=== PATIENT | female | born 1940 | race Caucasian/White ===

== ENCOUNTER 2017-12-24 08:04 | Inpatient (IN) | payer MEDICARE ==
[~2017-12-24] VITALS: Ht 167.6 cm; Wt 71.5 kg
[2017-12-24] MEDS ORDERED: IPRATROPIUM/ALBUTEROL SULFATE 3 ML SOLUTION IH ONE (08:25)
[2017-12-24 08:29] LABS: BASOPHILS % (AUTO) 1.6 % (0.0-5.0); EOSINOPHILS % (AUTO) 0.9 % (0.0-8.0); HEMATOCRIT 41.6 % (36-48); LYMPHOCYTES % (AUTO) 33.6 % (21.0-51.0); MEAN CORPUSCULAR HEMOGLOBIN 29.2 pg (27.0-33.0); MEAN CORPUSCULAR VOLUME 88.4 fL (79-99); MONOCYTES % (AUTO) 11.6 % (3.0-13.0); NEUTROPHILS % (AUTO) 52.3 % (40.0-77.0); NUCLEATED RED BLOOD CELLS 0.2 % (0.0-0.19); PLATELET COUNT (AUTO) 214 K/uL (130-400); RED BLOOD CELL COUNT(AUTO) 4.71 MIL/uL (4.00-5.50); RED CELL DISTRIBUTION WIDTH 16.4 % (11.0-15.5); WHITE BLOOD COUNT (AUTO) 5.9 K/uL (4.8-10.8)
[2017-12-24 08:37] LABS: CREATININE 0.9 mg/dL (0.5-1.5); POTASSIUM 4.6 mmol/L (3.5-5.1)
[2017-12-24 08:42] LABS: BILIRUBIN,TOTAL 0.5 mg/dL (0.2-1.0); TOTAL PROTEIN, SERUM 9.3 g/dL (6.0-8.3)
[2017-12-24 08:53] LABS: ALBUMIN 3.4 g/dL (3.5-5.0)
[2017-12-24] MEDS ORDERED: MORPHINE SULFATE 4 MG/1ML SYG ONE (09:17)
[2017-12-24] MEDS ORDERED: ONDANSETRON HCL MDV 20ML 2 MG/ML VIAL ONE (09:17)
[2017-12-24] MEDS ORDERED: FUROSEMIDE 10 MG/ML 4ML VIAL ONE (09:37)
[2017-12-24] MEDS ORDERED: ACETAMINOPHEN 325 MG TAB PO PRN (09:45)
[2017-12-24] MEDS ORDERED: GUAIFENESIN-DM 200/20 MG 10 ML PO PRN (09:45)
[2017-12-24] MEDS ORDERED: LACTULOSE 20 GM/30 ML UDCUP PO PRN (09:45)
[2017-12-24] MEDS ORDERED: FENTANYL CITRATE PF 50 MCG/1 ML 2ML VIAL ONE (10:27)
[2017-12-24 10:31] LABS: HEMATOCRIT 41.2 % (36-48); MEAN CORPUSCULAR HEMOGLOBIN 28.8 pg (27.0-33.0); MEAN CORPUSCULAR HGB CONC 32.8 g/dL (32.0-36.0); MEAN CORPUSCULAR VOLUME 87.9 fL (79-99); NUCLEATED RED BLOOD CELLS 0.1 % (0.0-0.19); PLATELET COUNT (AUTO) 207 K/uL (130-400); RED BLOOD CELL COUNT(AUTO) 4.69 MIL/uL (4.00-5.50); RED CELL DISTRIBUTION WIDTH 16.6 % (11.0-15.5)
[2017-12-24 10:35] LABS: PROTHROMBIN TIME 10.5 SEC (9.6-11.6)
[2017-12-24 11:22] LABS: BILIRUBIN,URINE NEGATIVE (NEGATIVE); COLOR,URINE YELLOW (YELLOW); GLUCOSE, URINE (UA) NEGATIVE (NEGATIVE); KETONES,URINE NEGATIVE (NEGATIVE); LEUKOCYTE ESTERASE ,URINE SMALL (NEGATIVE); NITRATE,URINE POSITIVE (NEGATIVE); OCCULT BLOOD,URINE SMALL (NEGATIVE); PROTEIN,URINE TRACE (NEGATIVE); UROBILINOGEN,URINE 0.2 mg/dL (0.2-1.0)
[2017-12-24 11:28] LABS: APPEARANCE,URINE SLIGHTLY CLOUDY (CLEAR)
[2017-12-24 11:59] LABS: BACTERIA,URINE Many /HPF (None Seen)
[2017-12-24] MEDS: IPRATROPIUM/ALBUTEROL SULFATE 3 ML SOLUTION IH SCH ×2 (12:00→19:50)
[2017-12-24 12:01] LABS: RBC,URINE 0-1 /HPF (0-1); SQUAMOUS EPITHELIAL CELL,UR 0-2 /HPF (0-2)
[2017-12-24] MEDS ORDERED: ONDANSETRON HCL MDV 20ML 2 MG/ML VIAL IVP PRN (13:30)
[2017-12-24 14:04] VITALS: BP 128/76
[2017-12-24 15:01] VITALS: BP 146/70
[2017-12-24] MEDS: MORPHINE SULFATE 2 MG/ML 1ML SYG IVP PRN (15:16)
[2017-12-24] MEDS ORDERED: ESCI10TA54 PO (15:33)
[2017-12-24] MEDS ORDERED: LOSA100T29 PO (15:33)
[2017-12-24] MEDS ORDERED: VALS80TA29 PO (15:33)
[2017-12-24] MEDS ORDERED: LEVO75 PO (15:33)
[2017-12-24] MEDS ORDERED: FURO20TA4 PO (15:33)
[2017-12-24] MEDS ORDERED: SOTA80TA PO (15:33)
[2017-12-24] MEDS ORDERED: APIX5TAB4 PO (15:33)
[2017-12-24] MEDS ORDERED: KETOROLAC TROMETHAMINE 15MG/ML ONE (21:23)
[2017-12-24] MEDS: FAMOTIDINE/PF 20 MG/2 ML VIAL IV SCH (21:27)
[2017-12-25] VITALS (8 sets, daily range): BP systolic 80–124; BP diastolic 45–78
[2017-12-25] MEDS: IPRATROPIUM/ALBUTEROL SULFATE 3 ML SOLUTION IH SCH ×4 (00:43→19:19)
[2017-12-25] MEDS: SODIUM CHLORIDE 0.9% 1000ML 1,000 ML IV SCH ×2 (01:52→21:12)
[2017-12-25] MEDS ORDERED: LEVOFLOXACIN 500 MG/D5W 100 ML 100 ML ONE (02:00)
[2017-12-25] MEDS: LEVOFLOXACIN 500 MG/D5W 100 ML 100 ML IV SCH (02:02)
[2017-12-25] MEDS: KETOROLAC TROMETHAMINE 15MG/ML IV PRN ×2 (04:43→22:01)
[2017-12-25 05:29] LABS: HEMATOCRIT 32.3 % (36-48); MEAN CORPUSCULAR HEMOGLOBIN 29.3 pg (27.0-33.0); MEAN CORPUSCULAR HGB CONC 33.5 g/dL (32.0-36.0); MEAN CORPUSCULAR VOLUME 87.3 fL (79-99); NUCLEATED RED BLOOD CELLS 0.1 % (0.0-0.19); PLATELET COUNT (AUTO) 143 K/uL (130-400); RED CELL DISTRIBUTION WIDTH 16.6 % (11.0-15.5); WHITE BLOOD COUNT (AUTO) 7.1 K/uL (4.8-10.8)
[2017-12-25 05:43] LABS: CREATININE 1.8 mg/dL (0.5-1.5); POTASSIUM 4.1 mmol/L (3.5-5.1)
[2017-12-25 06:09] LABS: HEMOGLOBIN A1C 5.6 % (4.0-6.0)
[2017-12-25 06:27] LABS: B-TYPE NATRIURETIC PEPTIDE 220 pg/mL (0-100)
[2017-12-25] MEDS: FAMOTIDINE/PF 20 MG/2 ML VIAL IV SCH ×2 (12:04→21:11)
[2017-12-25] MEDS: MORPHINE SULFATE 2 MG/ML 1ML SYG IVP PRN (15:12)
[2017-12-25] MEDS: FLUTICASONE PROPIONATE 50MCG/SPRAY 16 GM BOTTLE EN SCH (21:11)
[2017-12-25] MEDS ORDERED: MORPHINE SULFATE 2 MG/ML 1ML SYG IVP PRN (22:57)
[2017-12-26] VITALS (32 sets, daily range): BP systolic 78–168; BP diastolic 41–85
[2017-12-26] MEDS: IPRATROPIUM/ALBUTEROL SULFATE 3 ML SOLUTION IH SCH ×5 (00:09→23:40)
[2017-12-26] MEDS: LEVOFLOXACIN 500 MG/D5W 100 ML 100 ML IV SCH (03:55)
[2017-12-26 05:37] LABS: HEMATOCRIT 32.3 % (36-48)
[2017-12-26 05:47] LABS: CREATININE 1.3 mg/dL (0.5-1.5); POTASSIUM 4.2 mmol/L (3.5-5.1)
[2017-12-26] MEDS: LEVOTHYROXINE 75 MCG TABLET PO SCH (07:25)
[2017-12-26] MEDS ORDERED: NEOMY SULF/POLYMYXIN B SULFATE 1 ML AMPUL IR ONE (07:37)
[2017-12-26] MEDS ORDERED: CLINDAMYCIN 900 MG/D5% WATER 50 ML IV ONE (08:06)
[2017-12-26] MEDS ORDERED: MIDAZOLAM HCL 1 MG/ML 2ML VIAL ONE ×2 (08:12→08:28)
[2017-12-26] MEDS ORDERED: PROPOFOL 10 MG/ML 20ML VIAL IV ONE ×2 (08:14→08:28)
[2017-12-26] MEDS ORDERED: DEXAMETHASONE SOD PHOSPHATE 10MG/ML 1ML VIAL ONE (08:27)
[2017-12-26] MEDS ORDERED: LIDOCAINE PF 2% 5ML ABBOJECT ONE (08:27)
[2017-12-26] MEDS ORDERED: GLYCOPYRROLATE 0.2 MG/ML 5 ML VIAL ONE (08:27)
[2017-12-26] MEDS: FAMOTIDINE/PF 20 MG/2 ML VIAL IV SCH ×2 (09:00→21:00)
[2017-12-26] MEDS: CITALOPRAM 20 MG TABLET PO SCH (09:00)
[2017-12-26] MEDS: FLUTICASONE PROPIONATE 50MCG/SPRAY 16 GM BOTTLE EN SCH ×2 (09:00→22:38)
[2017-12-26] MEDS ORDERED: BUPIVACAINE/EPI/PF 0.25% 30ML VIAL IJ ONE (09:56)
[2017-12-26] MEDS ORDERED: DURAMORPH PF1 MG/ML 10ML AMP IV ONE (09:56)
[2017-12-26] MEDS ORDERED: KETOROLAC TROMETHAMINE 30MG/ML ONE (09:58)
[2017-12-26] MEDS ORDERED: EPHEDRINE SULFATE 50 MG/ML AMPULE ONE (10:12)
[2017-12-26] MEDS: DEXTROSE 5%-LACTATED RINGERS 1,000 ML IV SCH (10:22)
[2017-12-26] MEDS ORDERED: OXYCODONE HCL 5 MG TAB PO PRN ×2 (10:30)
[2017-12-26] MEDS ORDERED: DiphenhydrAMINE HCL 50 MG/ML VIAL IVP PRN (10:30)
[2017-12-26] MEDS ORDERED: TRAMADOL HCL 50 MG TABLET PO PRN (10:30)
[2017-12-26] MEDS ORDERED: TEMAZEPAM 15 MG CAPSULE PO PRN (10:30)
[2017-12-26] MEDS ORDERED: POTASSIUM CHLORIDE 20 MEQ ERTAB PO PRN (10:30)
[2017-12-26] MEDS ORDERED: CALCIUM CARBONATE 500 MG TABLET PO PRN (10:30)
[2017-12-26] MEDS ORDERED: PROMETHAZINE HCL 25 MG/ML 1ML AMPULE IM PRN (10:30)
[2017-12-26] MEDS ORDERED: DIPHENHYDRAMINE HCL 25 MG CAPSULE PO PRN (10:30)
[2017-12-26] MEDS ORDERED: POTASSIUM CHLORIDE 20MEQ/100ML 100 ML IV PRN (10:30)
[2017-12-26] MEDS ORDERED: MEPERIDINE-PF 25 MG/ML SYG ONE (10:54)
[2017-12-26] MEDS ORDERED: LACTATED RINGERS 1000ML IV SCH (14:15)
[2017-12-26] MEDS: CLINDAMYCIN 900 MG/D5% WATER 50 ML IVPB SCH ×2 (16:20→22:38)
[2017-12-26] MEDS: PSYLLIUM SEED 1 EACH PACKET PO SCH (16:20)
[2017-12-26] MEDS: SOTALOL HCL 80 MG TABLET PO SCH (21:00)
[2017-12-26] MEDS: FUROSEMIDE 20 MG TABLET PO SCH (21:00)
[2017-12-27] MEDS: LEVOFLOXACIN 500 MG/D5W 100 ML 100 ML IV SCH (02:53)
[2017-12-27 04:25] VITALS: BP 100/54
[2017-12-27] MEDS: DEXTROSE 5%-LACTATED RINGERS 1,000 ML IV SCH (06:22)
[2017-12-27 06:38] LABS: HEMATOCRIT 21.9 % (36-48); MEAN CORPUSCULAR HGB CONC 33.2 g/dL (32.0-36.0); MEAN CORPUSCULAR VOLUME 87.2 fL (79-99); NUCLEATED RED BLOOD CELLS 0.1 % (0.0-0.19); PLATELET COUNT (AUTO) 94 K/uL (130-400); RED BLOOD CELL COUNT(AUTO) 2.51 MIL/uL (4.00-5.50); RED CELL DISTRIBUTION WIDTH 16.2 % (11.0-15.5); WHITE BLOOD COUNT (AUTO) 6.6 K/uL (4.8-10.8)
[2017-12-27] MEDS: IPRATROPIUM/ALBUTEROL SULFATE 3 ML SOLUTION IH SCH ×4 (06:38→23:51)
[2017-12-27 06:48] LABS: CREATININE 0.9 mg/dL (0.5-1.5); POTASSIUM 4.3 mmol/L (3.5-5.1)
[2017-12-27 07:41] VITALS: BP 92/54
[2017-12-27] MEDS: LEVOTHYROXINE 75 MCG TABLET PO SCH (08:27)
[2017-12-27] MEDS: SODIUM CHLORIDE 0.9% 1000ML 1,000 ML IV SCH (08:29)
[2017-12-27] MEDS: LOSARTAN 100 MG TABLET PO SCH (09:00)
[2017-12-27] MEDS: FUROSEMIDE 20 MG TABLET PO SCH ×2 (09:00→21:07)
[2017-12-27] MEDS ORDERED: VALSARTAN 80 MG PO SCH (09:00)
[2017-12-27] MEDS: SOTALOL HCL 80 MG TABLET PO SCH ×2 (09:00→21:07)
[2017-12-27] MEDS: FAMOTIDINE/PF 20 MG/2 ML VIAL IV SCH ×2 (09:00→21:00)
[2017-12-27] MEDS ORDERED: FUROSEMIDE 10 MG/ML 2ML VIAL IV SCH (09:45)
[2017-12-27] MEDS: CITALOPRAM 20 MG TABLET PO SCH (09:58)
[2017-12-27] MEDS: FLUTICASONE PROPIONATE 50MCG/SPRAY 16 GM BOTTLE EN SCH ×2 (09:59→21:06)
[2017-12-27] MEDS ORDERED: RIVAROXABAN 10 MG TABLET PO SCH (10:30)
[2017-12-27 11:36] VITALS: BP 134/82
[2017-12-27] MEDS: PSYLLIUM SEED 1 EACH PACKET PO SCH (12:53)
[2017-12-27 17:10] VITALS: BP 148/75
[2017-12-27 20:00] VITALS: BP 158/87
[2017-12-27] MEDS: APIXABAN 2.5 MG TABLET PO SCH (21:06)
[2017-12-28] VITALS (10 sets, daily range): BP systolic 74–128; BP diastolic 35–76
[2017-12-28] MEDS: LEVOFLOXACIN 500 MG/D5W 100 ML 100 ML IV SCH (03:02)
[2017-12-28] MEDS: SODIUM CHLORIDE 0.9% 1000ML 1,000 ML IV SCH (04:29)
[2017-12-28] MEDS ORDERED: DILTIAZEM HCL 5 MG/ML 10 ML VIAL IV SCH (05:15)
[2017-12-28] MEDS: SOTALOL HCL 80 MG TABLET PO SCH ×2 (05:21→21:00)
[2017-12-28 05:30] LABS: HEMATOCRIT 22.4 % (36-48); MEAN CORPUSCULAR HEMOGLOBIN 31.2 pg (27.0-33.0); MEAN CORPUSCULAR HGB CONC 35.6 g/dL (32.0-36.0); MEAN CORPUSCULAR VOLUME 87.5 fL (79-99); NUCLEATED RED BLOOD CELLS 0.1 % (0.0-0.19); PLATELET COUNT (AUTO) 101 K/uL (130-400); RED BLOOD CELL COUNT(AUTO) 2.56 MIL/uL (4.00-5.50); RED CELL DISTRIBUTION WIDTH 15.5 % (11.0-15.5); WHITE BLOOD COUNT (AUTO) 10.3 K/uL (4.8-10.8)
[2017-12-28] MEDS: LABETALOL 20 MG/4 ML DISP.SYRIN IV SCH (05:30)
[2017-12-28] MEDS ORDERED: LABETALOL HCL 5 MG/ML 20ML VIAL IV ONE (05:32)
[2017-12-28 05:48] LABS: CREATININE 0.9 mg/dL (0.5-1.5); POTASSIUM 3.2 mmol/L (3.5-5.1)
[2017-12-28] MEDS: IPRATROPIUM/ALBUTEROL SULFATE 3 ML SOLUTION IH SCH ×4 (06:43→23:09)
[2017-12-28] MEDS: LEVOTHYROXINE 75 MCG TABLET PO SCH (06:48)
[2017-12-28] MEDS ORDERED: SODIUM CHLORIDE 0.9% 500ML 500 ML IV SCH (08:00)
[2017-12-28] MEDS ORDERED: DILTIAZEM HCL 5 MG/ML 10 ML VIAL IV PRN (08:00)
[2017-12-28] MEDS ORDERED: DIGOXIN 250 MCG/ML 2ML AMP IV SCH (08:00)
[2017-12-28] MEDS ORDERED: MAGNESIUM 2GM PREMIX 50ML 50 ML IV SCH ×2 (08:00→11:30)
[2017-12-28] MEDS: CITALOPRAM 20 MG TABLET PO SCH (08:49)
[2017-12-28] MEDS: APIXABAN 2.5 MG TABLET PO SCH ×2 (08:49→20:08)
[2017-12-28] MEDS: FUROSEMIDE 20 MG TABLET PO SCH ×2 (09:00→21:00)
[2017-12-28] MEDS: FAMOTIDINE/PF 20 MG/2 ML VIAL IV SCH ×2 (09:00→20:18)
[2017-12-28] MEDS: LOSARTAN 100 MG TABLET PO SCH (09:00)
[2017-12-28] MEDS ORDERED: APIXABAN 2.5 MG TABLET PO SCH (09:15)
[2017-12-28] MEDS: POTASSIUM CHLORIDE 10% ELIXIR 20 MEQ/15 ML UDCUP PO PRN ×3 (10:17→15:58)
[2017-12-28] MEDS ORDERED: BISACODYL 5 MG TABLET.DR PO PRN (10:30)
[2017-12-28] MEDS: PSYLLIUM SEED 1 EACH PACKET PO SCH (11:41)
[2017-12-28] MEDS ORDERED: PHARMACY COMMUNICATION MISC SCH (13:15)
[2017-12-28] MEDS ORDERED: METOPROLOL TARTRATE 1 MG/ML 5ML VIAL IV PRN (13:30)
[2017-12-28] MEDS: FLUTICASONE PROPIONATE 50MCG/SPRAY 16 GM BOTTLE EN SCH (20:17)
[2017-12-29] VITALS (7 sets, daily range): BP systolic 96–110; BP diastolic 45–68
[2017-12-29] MEDS: LABETALOL 20 MG/4 ML DISP.SYRIN IV SCH (05:24)
[2017-12-29] MEDS: LEVOFLOXACIN 500 MG/D5W 100 ML 100 ML IV SCH (05:24)
[2017-12-29] MEDS: SODIUM CHLORIDE 0.9% 1000ML 1,000 ML IV SCH (05:25)
[2017-12-29 05:48] LABS: BASOPHILS % (AUTO) 0.3 % (0.0-5.0); EOSINOPHILS % (AUTO) 0.4 % (0.0-8.0); LYMPHOCYTES % (AUTO) 12.4 % (21.0-51.0); MEAN CORPUSCULAR HEMOGLOBIN 29.2 pg (27.0-33.0); MEAN CORPUSCULAR HGB CONC 33.3 g/dL (32.0-36.0); MEAN CORPUSCULAR VOLUME 87.7 fL (79-99); MONOCYTES % (AUTO) 16.8 % (3.0-13.0); NEUTROPHILS % (AUTO) 70.1 % (40.0-77.0); NUCLEATED RED BLOOD CELLS 0.2 % (0.0-0.19); PLATELET COUNT (AUTO) 104 K/uL (130-400); RED BLOOD CELL COUNT(AUTO) 2.85 MIL/uL (4.00-5.50); RED CELL DISTRIBUTION WIDTH 15.8 % (11.0-15.5); WHITE BLOOD COUNT (AUTO) 8.6 K/uL (4.8-10.8)
[2017-12-29 05:49] LABS: CREATININE 0.8 mg/dL (0.5-1.5); POTASSIUM 4.1 mmol/L (3.5-5.1)
[2017-12-29] MEDS: LEVOTHYROXINE 75 MCG TABLET PO SCH (06:12)
[2017-12-29] MEDS: IPRATROPIUM/ALBUTEROL SULFATE 3 ML SOLUTION IH SCH ×4 (07:03→23:43)
[2017-12-29] MEDS: LOSARTAN 100 MG TABLET PO SCH (09:00)
[2017-12-29] MEDS: FAMOTIDINE/PF 20 MG/2 ML VIAL IV SCH ×2 (09:00→20:48)
[2017-12-29] MEDS: FLUTICASONE PROPIONATE 50MCG/SPRAY 16 GM BOTTLE EN SCH ×2 (09:00→20:48)
[2017-12-29] MEDS: FUROSEMIDE 20 MG TABLET PO SCH ×2 (09:00→20:48)
[2017-12-29] MEDS: CITALOPRAM 20 MG TABLET PO SCH (10:16)
[2017-12-29] MEDS: APIXABAN 2.5 MG TABLET PO SCH ×2 (10:16→20:23)
[2017-12-29] MEDS: SOTALOL HCL 80 MG TABLET PO SCH ×2 (10:17→20:23)
[2017-12-29] MEDS: FERROUS FUMARATE 324 MG TABLET PO PRN (10:19)
[2017-12-29] MEDS ORDERED: BISACODYL 10 MG SUPP.RECT RC PRN (10:30)
[2017-12-29] MEDS: PSYLLIUM SEED 1 EACH PACKET PO SCH (12:27)
[2017-12-29] MEDS ORDERED: FUROSEMIDE 10 MG/ML 2ML VIAL IV SCH (12:30)
[2017-12-30] MEDS: LABETALOL 20 MG/4 ML DISP.SYRIN IV SCH (05:30)
[2017-12-30 05:36] LABS: CREATININE 0.8 mg/dL (0.5-1.5)
[2017-12-30 05:50] VITALS: BP 99/58
[2017-12-30 05:53] LABS: HEMATOCRIT 21.9 % (36-48); MEAN CORPUSCULAR HEMOGLOBIN 29.6 pg (27.0-33.0); MEAN CORPUSCULAR HGB CONC 34.1 g/dL (32.0-36.0); NUCLEATED RED BLOOD CELLS 0.3 % (0.0-0.19); PLATELET COUNT (AUTO) 115 K/uL (130-400); RED BLOOD CELL COUNT(AUTO) 2.52 MIL/uL (4.00-5.50); RED CELL DISTRIBUTION WIDTH 15.9 % (11.0-15.5); WHITE BLOOD COUNT (AUTO) 7.9 K/uL (4.8-10.8)
[2017-12-30] MEDS: IPRATROPIUM/ALBUTEROL SULFATE 3 ML SOLUTION IH SCH ×4 (05:54→23:46)
[2017-12-30] MEDS: LEVOFLOXACIN 500 MG/D5W 100 ML 100 ML IV SCH (05:55)
[2017-12-30] MEDS: LEVOTHYROXINE 75 MCG TABLET PO SCH (06:53)
[2017-12-30 08:02] VITALS: BP 111/65
[2017-12-30] MEDS: FAMOTIDINE/PF 20 MG/2 ML VIAL IV SCH ×2 (09:00→19:50)
[2017-12-30] MEDS: APIXABAN 2.5 MG TABLET PO SCH (09:00)
[2017-12-30] MEDS: FUROSEMIDE 20 MG TABLET PO SCH ×2 (09:00→19:54)
[2017-12-30] MEDS: LOSARTAN 100 MG TABLET PO SCH (09:00)
[2017-12-30] MEDS: CITALOPRAM 20 MG TABLET PO SCH (10:05)
[2017-12-30] MEDS: SOTALOL HCL 80 MG TABLET PO SCH ×2 (10:05→19:54)
[2017-12-30] MEDS: FLUTICASONE PROPIONATE 50MCG/SPRAY 16 GM BOTTLE EN SCH ×2 (10:06→19:49)
[2017-12-30 10:53] LABS: HEMATOCRIT 22.5 % (36-48)
[2017-12-30] MEDS ORDERED: COMPOUND IV MISC 1 EACH IVSOLN MISC PRN (11:30)
[2017-12-30 11:32] LABS: RETICULOCYTE % (AUTO) 3.25 % (0.42-2.23)
[2017-12-30 11:51] VITALS: BP 107/56
[2017-12-30] MEDS: IRON SUCROSE COMPLEX 100 MG in SODIUM CHLORIDE 0.9% 50 ML IV SCH (12:19)
[2017-12-30] MEDS: FERROUS FUMARATE 324 MG TABLET PO PRN (12:19)
[2017-12-30] MEDS: PSYLLIUM SEED 1 EACH PACKET PO SCH (12:19)
[2017-12-30 12:29] LABS: FERRITIN 137 ng/mL (15-150); IRON, SERUM 60 mcg/dL (50-170); TOTAL IRON BINDING CAPACITY 315 mcg/dL (250-450)
[2017-12-30 16:31] VITALS: BP 128/65
[2017-12-30 20:02] VITALS: BP 118/64
[2017-12-31] VITALS (7 sets, daily range): BP systolic 110–141; BP diastolic 59–86
[2017-12-31] MEDS: ACETAMINOPHEN 325 MG TAB PO PRN ×3 (00:44→22:17)
[2017-12-31] MEDS: LABETALOL 20 MG/4 ML DISP.SYRIN IV SCH (01:36)
[2017-12-31 05:17] LABS: HEMATOCRIT 22.6 % (36-48); MEAN CORPUSCULAR HEMOGLOBIN 29.5 pg (27.0-33.0); MEAN CORPUSCULAR HGB CONC 33.9 g/dL (32.0-36.0); MEAN CORPUSCULAR VOLUME 87.3 fL (79-99); NUCLEATED RED BLOOD CELLS 0.6 % (0.0-0.19); PLATELET COUNT (AUTO) 156 K/uL (130-400); RED BLOOD CELL COUNT(AUTO) 2.59 MIL/uL (4.00-5.50); WHITE BLOOD COUNT (AUTO) 8.2 K/uL (4.8-10.8)
[2017-12-31] MEDS: LEVOFLOXACIN 500 MG/D5W 100 ML 100 ML IV SCH (05:24)
[2017-12-31 05:35] LABS: CREATININE 0.7 mg/dL (0.5-1.5); POTASSIUM 3.6 mmol/L (3.5-5.1)
[2017-12-31] MEDS: IPRATROPIUM/ALBUTEROL SULFATE 3 ML SOLUTION IH SCH ×3 (06:14→19:59)
[2017-12-31] MEDS: LEVOTHYROXINE 75 MCG TABLET PO SCH (06:23)
[2017-12-31] MEDS: POTASSIUM CHLORIDE 10% ELIXIR 20 MEQ/15 ML UDCUP PO PRN ×2 (06:24→10:24)
[2017-12-31] MEDS: LOSARTAN 100 MG TABLET PO SCH (08:56)
[2017-12-31] MEDS: FAMOTIDINE/PF 20 MG/2 ML VIAL IV SCH ×2 (08:56→20:48)
[2017-12-31] MEDS: SOTALOL HCL 80 MG TABLET PO SCH ×2 (10:05→20:47)
[2017-12-31] MEDS: CITALOPRAM 20 MG TABLET PO SCH (10:05)
[2017-12-31] MEDS: FLUTICASONE PROPIONATE 50MCG/SPRAY 16 GM BOTTLE EN SCH ×2 (10:05→20:48)
[2017-12-31] MEDS: FUROSEMIDE 20 MG TABLET PO SCH ×2 (10:06→21:00)
[2017-12-31] MEDS: IRON SUCROSE COMPLEX 100 MG in SODIUM CHLORIDE 0.9% 50 ML IV SCH (11:54)
[2017-12-31] MEDS: PSYLLIUM SEED 1 EACH PACKET PO SCH (11:54)
[2017-12-31] MEDS ORDERED: FUROSEMIDE 10 MG/ML 2ML VIAL IV SCH (16:45)
[2017-12-31] MEDS ORDERED: FUROSEMIDE 10 MG/ML 2ML VIAL ONE (21:42)
[2018-01-01] MEDS: IPRATROPIUM/ALBUTEROL SULFATE 3 ML SOLUTION IH SCH ×4 (00:35→18:00)
[2018-01-01 04:00] VITALS: BP 122/69
[2018-01-01] MEDS: LABETALOL 20 MG/4 ML DISP.SYRIN IV SCH (05:30)
[2018-01-01 05:50] LABS: BASOPHILS % (AUTO) 0.5 % (0.0-5.0); EOSINOPHILS % (AUTO) 0.8 % (0.0-8.0); HEMATOCRIT 24.5 % (36-48); LYMPHOCYTES % (AUTO) 13.5 % (21.0-51.0); MEAN CORPUSCULAR HEMOGLOBIN 31.5 pg (27.0-33.0); MEAN CORPUSCULAR HGB CONC 35.8 g/dL (32.0-36.0); MONOCYTES % (AUTO) 18.6 % (3.0-13.0); NEUTROPHILS % (AUTO) 66.6 % (40.0-77.0); NUCLEATED RED BLOOD CELLS 1.6 % (0.0-0.19); PLATELET COUNT (AUTO) 144 K/uL (130-400); RED BLOOD CELL COUNT(AUTO) 2.79 MIL/uL (4.00-5.50); RED CELL DISTRIBUTION WIDTH 15.6 % (11.0-15.5); WHITE BLOOD COUNT (AUTO) 9.1 K/uL (4.8-10.8)
[2018-01-01 06:17] LABS: CREATININE 0.7 mg/dL (0.5-1.5); POTASSIUM 3.6 mmol/L (3.5-5.1)
[2018-01-01] MEDS: LEVOFLOXACIN 500 MG/D5W 100 ML 100 ML IV SCH (06:42)
[2018-01-01] MEDS: LEVOTHYROXINE 75 MCG TABLET PO SCH (06:43)
[2018-01-01 08:00] VITALS: BP 142/78
[2018-01-01] MEDS: FLUTICASONE PROPIONATE 50MCG/SPRAY 16 GM BOTTLE EN SCH (08:58)
[2018-01-01] MEDS: SOTALOL HCL 80 MG TABLET PO SCH (08:59)
[2018-01-01] MEDS: IRON SUCROSE COMPLEX 100 MG in SODIUM CHLORIDE 0.9% 50 ML IV SCH (08:59)
[2018-01-01] MEDS: CITALOPRAM 20 MG TABLET PO SCH (08:59)
[2018-01-01] MEDS: FUROSEMIDE 20 MG TABLET PO SCH (08:59)
[2018-01-01] MEDS: FAMOTIDINE/PF 20 MG/2 ML VIAL IV SCH (08:59)
[2018-01-01] MEDS: POTASSIUM CHLORIDE 10% ELIXIR 20 MEQ/15 ML UDCUP PO PRN ×2 (09:00→12:30)
[2018-01-01] MEDS: LOSARTAN 100 MG TABLET PO SCH (09:00)
[2018-01-01] MEDS ORDERED: FAMOTIDINE 20MG TAB 20 MG TAB PO SCH (10:30)
[2018-01-01 12:00] VITALS: BP 121/74
[2018-01-01] MEDS: PSYLLIUM SEED 1 EACH PACKET PO SCH (12:29)
[2018-01-01 16:00] VITALS: BP 116/64
== END 2018-01-01 19:00 | DRG 469 ==
LOC: EDH 08:04 → EDHIP 09:43 → 4AH 14:34
PROVIDERS: ADMIT Family Medicine; ATTEND Family Medicine
PROC: 0SRB01Z Replacement of Left Hip Joint with Metal Synthetic Substitute, Open Approach (ICD-10-PCS; principal; 2017-12-26 09:04)
PROC: 30233N1 Transfusion of Nonautologous Red Blood Cells into Peripheral Vein, Percutaneous Approach (ICD-10-PCS; 2017-12-26 09:04)
DX: S72.002A Fracture of unspecified part of neck of left femur, initial encounter for closed fracture (principal); I50.33 Acute on chronic diastolic (congestive) heart failure; D68.69 Other thrombophilia; I48.0 Paroxysmal atrial fibrillation; I48.1 Persistent atrial fibrillation; E83.42 Hypomagnesemia; N39.0 Urinary tract infection, site not specified; D64.9 Anemia, unspecified; E03.9 Hypothyroidism, unspecified; E78.5 Hyperlipidemia, unspecified; F32.9 Major depressive disorder, single episode, unspecified; I11.0 Hypertensive heart disease with heart failure; I25.10 Atherosclerotic heart disease of native coronary artery without angina pectoris; I34.0 Nonrheumatic mitral (valve) insufficiency; W01.0XXA Fall on same level from slipping, tripping and stumbling without subsequent striking against object, initial encounter; R73.9 Hyperglycemia, unspecified; Y93.K1 Activity, walking an animal; Z79.01 Long term (current) use of anticoagulants; Z90.710 Acquired absence of both cervix and uterus; Y92.89 Other specified places as the place of occurrence of the external cause; Y99.8 Other external cause status; Z88.0 Allergy status to penicillin
CPT/HCPCS: 36415; 36430; 70450; 71045; 72170; 73502; 73503; 80048; 80053; 81001; 82270; 82550; 82607; 82728; 82746; 83036; 83615; 83735; 83880; 84484; 85014; 85018; 85025; 85027; 85610; 86850; 86900; 86901; 86922; 87040; 88305; 88311; 93005; 94640; 94664; 97039; A4344; J1100; J1160; J1756; J1885; J1940; J1956; J2001; J2175; J2250; J2270; J2274; J2704; J3010; J3475; J3480; J3490; J7030; J7040; J7120; P9016

== ENCOUNTER 2019-02-28 11:01 | Emergency (ER) | payer MEDICARE ==
[~2019-02-28 11:01] MED LIST: APIX5TAB4 PO; ESCI10TA54 PO; FURO20TA4 PO; LEVO75 PO; LOSA100T58 PO; SOTA80TA PO; VALS80TA30 PO
[2019-02-28 11:16] LABS: BASOPHILS % (AUTO) 0.9 % (0.0-5.0); EOSINOPHILS % (AUTO) 0.6 % (0.0-8.0); HEMATOCRIT 38.4 % (36-48); LYMPHOCYTES % (AUTO) 14.3 % (21.0-51.0); MEAN CORPUSCULAR HEMOGLOBIN 34.5 pg (27.0-33.0); MEAN CORPUSCULAR HGB CONC 34.8 g/dL (32.0-36.0); MEAN CORPUSCULAR VOLUME 99.1 fL (79-99); MONOCYTES % (AUTO) 11.1 % (3.0-13.0); NEUTROPHILS % (AUTO) 73.1 % (40.0-77.0); NUCLEATED RED BLOOD CELLS 0.4 % (0.0-0.19); PLATELET COUNT (AUTO) 136 K/uL (130-400); RED BLOOD CELL COUNT(AUTO) 3.87 MIL/uL (4.00-5.50); RED CELL DISTRIBUTION WIDTH 15.3 % (11.0-15.5); WHITE BLOOD COUNT (AUTO) 5.5 K/uL (4.8-10.8)
[2019-02-28 11:22] LABS: CREATININE 0.8 mg/dL (0.5-1.5); POTASSIUM 4.4 mmol/L (3.5-5.1)
[2019-02-28 11:27] LABS: ALBUMIN 3.7 g/dL (3.5-5.0); BILIRUBIN,TOTAL 1.2 mg/dL (0.2-1.0); TOTAL PROTEIN, SERUM 9.1 g/dL (6.0-8.3)
[2019-02-28] MEDS ORDERED: IPRATROPIUM/ALBUTEROL SULFATE 3 ML SOLUTION IH ONE ×2 (11:53→14:19)
[2019-02-28 12:02] LABS: B-TYPE NATRIURETIC PEPTIDE 353 pg/mL (0-100)
[2019-02-28] MEDS ORDERED: METHYLPREDNISOLONE SOD SUCC 125MG/2ML VIAL ONE (14:12)
== END 2019-02-28 15:21 | disposition home or self-care (01) ==
LOC: EDH 11:01
DX: J98.01 Acute bronchospasm (principal); E78.5 Hyperlipidemia, unspecified; I10 Essential (primary) hypertension; I48.91 Unspecified atrial fibrillation; E07.9 Disorder of thyroid, unspecified; Z88.0 Allergy status to penicillin; Z90.710 Acquired absence of both cervix and uterus; Z98.890 Other specified postprocedural states
CPT/HCPCS: 36415; 71045; 80053; 83880; 84484; 85025; 85378; 93005; 94640 ×2; 96374; 99285; J2930

== ENCOUNTER → 2019-08-29 | Outpatient (CLI) | payer MEDICARE ==
[~2019-08-29] MED LIST changes: +REGADENOSON 0.4 MG/5 ML PF SYG IVP SCH
== END | disposition home or self-care (01) ==
LOC: RAH 08:40
PROVIDERS: ATTEND Internal Medicine Cardiovascular Disease
DX: R06.02 Shortness of breath (principal)
CPT/HCPCS: 78452; 93017; 96374; A9500 ×2; J2785

== ENCOUNTER 2020-02-01 11:48 | Inpatient (IN) | payer MEDICARE ==
[2020-02-01] VITALS (23 sets, daily range): BP systolic 123–167; BP diastolic 67–94
[~2020-02-01] VITALS: Ht 167.6 cm; Wt 83.3 kg
[~2020-02-01 11:48] MED LIST changes: -REGADENOSON 0.4 MG/5 ML PF SYG IVP SCH; +ROCURONIUM BROMIDE 10MG/1ML 5ML VL IV ONE; +SUCCINYLCHOLINE CHLORIDE 20 MG/ML 10 ML VIAL IVP ONE
[2020-02-01] MEDS ORDERED: ONDANSETRON HCL 4 MG/2 ML VIAL ONE (12:26)
[2020-02-01 12:28] LABS: BASOPHILS % (AUTO) 0.2 % (0.0-5.0); EOSINOPHILS % (AUTO) 1.6 % (0.0-8.0); HEMATOCRIT 35.1 % (36-48); LYMPHOCYTES % (AUTO) 19.2 % (21.0-51.0); MEAN CORPUSCULAR HEMOGLOBIN 32.1 pg (27.0-33.0); MEAN CORPUSCULAR HGB CONC 32.5 g/dL (32.0-36.0); MEAN CORPUSCULAR VOLUME 98.9 fL (79-99); MONOCYTES % (AUTO) 12.7 % (3.0-13.0); NEUTROPHILS % (AUTO) 65.9 % (40.0-77.0); PLATELET COUNT (AUTO) 137 K/uL (130-400); RED BLOOD CELL COUNT(AUTO) 3.55 MIL/uL (4.00-5.50); RED CELL DISTRIBUTION WIDTH 15.4 % (11.0-15.5); WHITE BLOOD COUNT (AUTO) 4.5 K/uL (4.8-10.8)
[2020-02-01 12:32] LABS: CREATININE 0.8 mg/dL (0.5-1.5); INR 1.01 (0.85-1.15); PARTIAL THROMBOPLASTIN TIME 28.9 SEC (26.3-35.5); POTASSIUM 5.1 mmol/L (3.5-5.1); PROTHROMBIN TIME 10.9 SEC (9.6-11.6)
[2020-02-01 12:35] LABS: ALBUMIN 3.4 g/dL (3.5-5.0); BILIRUBIN,TOTAL 1.1 mg/dL (0.2-1.0); TOTAL PROTEIN, SERUM 8.1 g/dL (6.0-8.3)
[2020-02-01] MEDS ORDERED: ONDANSETRON HCL 4 MG/2 ML VIAL IVP PRN (13:15)
[2020-02-01] MEDS ORDERED: MORPHINE SULFATE 4 MG/1ML SYG ONE (13:21)
[2020-02-01] MEDS ORDERED: NICARDIPINE HCL IV SCH ×2 (14:00)
[2020-02-01] MEDS ORDERED: SODIUM CHLORIDE IV SCH ×2 (14:00)
[2020-02-01] MEDS ORDERED: HUMAN PROTHROMBIN COMPLX(PCC) 500 UNIT KIT IV SCH ×2 (14:15→14:30)
[2020-02-01] MEDS ORDERED: MORPHINE SULFATE 2 MG/ML 1ML SYG IVP PRN (14:45)
[2020-02-01] MEDS ORDERED: ROCURONIUM BROMIDE 10MG/1ML 5ML VL IV ONE (15:38)
[2020-02-01] MEDS ORDERED: ETOMIDATE 2 MG/ML 10 ML VIAL IVP ONE (15:38)
[2020-02-01] MEDS ORDERED: PHYTONADIONE 10 MG in SODIUM CHLORIDE 0.9% 50 ML IV SCH (16:15)
[2020-02-01] MEDS ORDERED: PHYTONADIONE 10 MG in SODIUM CHLORIDE 0.9% 50 ML SQ SCH (16:30)
[2020-02-01] MEDS: PHARMACY COMMUNICATION MISC SCH ×2 (18:34→20:45)
[2020-02-01] MEDS: SODIUM CHLORIDE 0.9% 1000ML 1,000 ML IV SCH (18:34)
[2020-02-01] MEDS ORDERED: FURO40TA5 PO (20:32)
[2020-02-01] MEDS ORDERED: LOSA100T58 PO (20:32)
[2020-02-01] MEDS ORDERED: SPIR25TA6 PO (20:32)
[2020-02-01] MEDS ORDERED: APIX5TAB PO (20:32)
[2020-02-01] MEDS ORDERED: SOTA80TA PO (20:32)
[2020-02-01] MEDS ORDERED: LEVO75TA10 PO (20:32)
[2020-02-02] VITALS (47 sets, daily range): BP systolic 93–172; BP diastolic 47–95
[2020-02-02] MEDS ORDERED: NICARDIPINE HCL 25 MG/10 ML ML IV ONE (00:09)
[2020-02-02] MEDS: PHARMACY COMMUNICATION MISC SCH ×4 (00:45→17:15)
[2020-02-02 04:20] LABS: EOSINOPHILS % (AUTO) 0.7 % (0.0-8.0); LYMPHOCYTES % (AUTO) 12.4 % (21.0-51.0); MEAN CORPUSCULAR HGB CONC 31.8 g/dL (32.0-36.0); MEAN CORPUSCULAR VOLUME 100.6 fL (79-99); MONOCYTES % (AUTO) 10.5 % (3.0-13.0); NEUTROPHILS % (AUTO) 74.9 % (40.0-77.0); NUCLEATED RED BLOOD CELLS 0.4 % (0.0-0.19); PLATELET COUNT (AUTO) 131 K/uL (130-400); RED BLOOD CELL COUNT(AUTO) 3.28 MIL/uL (4.00-5.50); RED CELL DISTRIBUTION WIDTH 15.2 % (11.0-15.5); WHITE BLOOD COUNT (AUTO) 6.7 K/uL (4.8-10.8)
[2020-02-02 04:28] LABS: CREATININE 0.7 mg/dL (0.5-1.5)
[2020-02-02 07:35] LABS: ABG BASE EXCESS 2.4 mmol/L (-2.0-3.0); ABG HCO3 29.8 mmol/L (21.0-28.0); ABG OXYGEN SATURATION 90.8 % (95.0-99.0); ABG PCO2 58 mmHg (32-45)
[2020-02-02] MEDS ORDERED: PROPOFOL 1000 MG/100 ML 100 ML IV ONE ×2 (08:40→10:34)
[2020-02-02] MEDS ORDERED: FENTANYL CITRATE PF 50 MCG/1 ML 2ML VIAL ONE (08:41)
--- NOTE | 2020-02-02 08:48 | NUR ---
Dr. Geronimo Alexandra with orders to intubate patient. Medicated with succinylcholine 100 mg, diprivan 100 mg, fentanyl 50 mg and rocuronium 50 mg. Patient intubated by Koko Kim CRNA with ET tube 7.5 24 cm at lip placed on ventilator AC mode. Dr. James at bedside. Dr. Tran at bedside. Dr. Chiu at bedside.
[2020-02-02] MEDS ORDERED: PROPOFOL 1000 MG/100 ML IV ONE (09:00)
[2020-02-02] MEDS ORDERED: FENTANYL CITRATE PF 50 MCG/1 ML 2ML VIAL IVP SCH (09:00)
[2020-02-02] MEDS ORDERED: FENTANYL CITRATE PF 0.05 MG/ML 1,000 MCG in SODIUM CHLORIDE 0.9% 100 ML IVPB SCH (09:15)
[2020-02-02] MEDS ORDERED: MIDAZOLAM 50MG-0.9% NS 50ML 50 ML BAG IV SCH (09:15)
[2020-02-02] MEDS ORDERED: MANNITOL 25% 50ML VIAL IV SCH (09:15)
[2020-02-02] MEDS ORDERED: CEFAZOLIN SODIUM 1 GM VIAL ONE ×2 (09:24→09:40)
[2020-02-02] MEDS ORDERED: ROCURONIUM 10MG/1ML SYR 10 MG/ML ML ONE ×2 (09:24→10:44)
[2020-02-02] MEDS ORDERED: PROPOFOL 10 MG/ML 20ML VIAL IV ONE (09:24)
[2020-02-02] MEDS ORDERED: THROMBIN-JMI 20000 UNIT KIT TP ONE (09:40)
[2020-02-02] MEDS ORDERED: BUPIVACAINE/EPI/PF 0.25% 30ML VIAL IJ ONE (09:40)
[2020-02-02] MEDS: PROPOFOL 1000 MG/100 ML 100 ML IV PRN (09:53)
[2020-02-02] MEDS ORDERED: EPHEDRINE SULFATE 50 MG/ML AMPULE ONE (10:12)
[2020-02-02 10:28] LABS: ABG BASE EXCESS 0.6 mmol/L (-2.0-3.0); ABG HCO3 24.7 mmol/L (21.0-28.0); ABG OXYGEN SATURATION 98.5 % (95.0-99.0); ABG PCO2 37 mmHg (32-45)
[2020-02-02 12:28] LABS: ABG BASE EXCESS 1.2 mmol/L (-2.0-3.0); ABG HCO3 23.1 mmol/L (21.0-28.0); ABG OXYGEN SATURATION 99.7 % (95.0-99.0); ABG PCO2 30 mmHg (32-45)
[2020-02-02] MEDS: FENTANYL 1000MCG+NS 100ML IV.SOLN IV SCH (12:53)
[2020-02-02] MEDS: SODIUM CHLORIDE 0.9% 1000ML 1,000 ML IV SCH (13:07)
[2020-02-02] MEDS: FAMOTIDINE/PF 20 MG/2 ML VIAL IV SCH (13:15)
--- NOTE | 2020-02-02 13:32 | NUR ---
Dr. Geronimo Alexandra at bedside. Spoke to sister Daxa Mayo and daughter Lainey Jose about procedure. Telephone consent obtained. Time out done for bronchoscopy and central venous catheter placement performed.
[2020-02-02 14:52] LABS: ABG BASE EXCESS 1.7 mmol/L (-2.0-3.0); ABG HCO3 24.5 mmol/L (21.0-28.0); ABG OXYGEN SATURATION 97.7 % (95.0-99.0); ABG PCO2 33 mmHg (32-45)
[2020-02-02] MEDS ORDERED: PHARMACY COMMUNICATION MISC SCH ×2 (15:15→15:30)
[2020-02-02] MEDS: ZOSYN 3.375GM+NS 50ML 50 ML IV SCH (16:42)
[2020-02-02] MEDS ORDERED: LIDOCAINE HCL-MPF 1% 2ML VIAL IJ PRN (16:45)
--- NOTE | 2020-02-02 17:59 | NUR ---
cm note pt currently intubated, attempted to call sister at listed phone #s. no answer. will continue to follow. per chart review, pt resides at home. no dme. independent with ambulation. will continue to followup with family Addendum: 02/02/20 at 1802 by LILI FAM CM Amended: Links added.
[2020-02-02 18:33] LABS: CREATININE 0.6 mg/dL (0.5-1.5); MAGNESIUM 1.6 mg/dL (1.80-2.40); POTASSIUM 3.4 mmol/L (3.5-5.1)
[2020-02-02] MEDS: POTASSIUM CHLORIDE 20MEQ/100ML 100 ML IV PRN (18:55)
[2020-02-02] MEDS: MAGNESIUM 2GM PREMIX 50ML 50 ML IV SCH (19:58)
[2020-02-03] VITALS (24 sets, daily range): BP systolic 9–140; BP diastolic 42–74
[2020-02-03] MEDS: PHARMACY COMMUNICATION MISC SCH ×3 (01:15→17:15)
[2020-02-03 03:58] LABS: ABG BASE EXCESS 0.2 mmol/L (-2.0-3.0); ABG HCO3 23.9 mmol/L (21.0-28.0); ABG OXYGEN SATURATION 98.7 % (95.0-99.0); ABG PCO2 36 mmHg (32-45)
[2020-02-03 04:28] LABS: BASOPHILS % (AUTO) 0.1 % (0.0-5.0); HEMATOCRIT 30.6 % (36-48); LYMPHOCYTES % (AUTO) 10.3 % (21.0-51.0); MEAN CORPUSCULAR HEMOGLOBIN 32.5 pg (27.0-33.0); MEAN CORPUSCULAR HGB CONC 32.4 g/dL (32.0-36.0); MEAN CORPUSCULAR VOLUME 100.3 fL (79-99); MONOCYTES % (AUTO) 14.7 % (3.0-13.0); NEUTROPHILS % (AUTO) 73.8 % (40.0-77.0); NUCLEATED RED BLOOD CELLS 0.5 % (0.0-0.19); PLATELET COUNT (AUTO) 140 K/uL (130-400); RED BLOOD CELL COUNT(AUTO) 3.05 MIL/uL (4.00-5.50); RED CELL DISTRIBUTION WIDTH 15.4 % (11.0-15.5); WHITE BLOOD COUNT (AUTO) 8.1 K/uL (4.8-10.8)
[2020-02-03 04:31] LABS: CREATININE 0.6 mg/dL (0.5-1.5); POTASSIUM 3.7 mmol/L (3.5-5.1)
[2020-02-03 04:34] LABS: INR 0.97 (0.85-1.15); MAGNESIUM 2.2 mg/dL (1.80-2.40); PARTIAL THROMBOPLASTIN TIME 27.1 SEC (26.3-35.5); PROTHROMBIN TIME 10.5 SEC (9.6-11.6)
[2020-02-03 05:55] LABS: ALBUMIN 2.8 g/dL (3.5-5.0); BILIRUBIN,TOTAL 0.9 mg/dL (0.2-1.0); TOTAL PROTEIN, SERUM 7.1 g/dL (6.0-8.3)
[2020-02-03] MEDS: POTASSIUM CHLORIDE 20MEQ/100ML 100 ML IV PRN ×2 (06:44→09:18)
[2020-02-03] MEDS: FENTANYL 1000MCG+NS 100ML IV.SOLN IV SCH (06:59)
[2020-02-03 07:39] LABS: ABG BASE EXCESS -0.1 mmol/L (-2.0-3.0); ABG HCO3 24.1 mmol/L (21.0-28.0); ABG OXYGEN SATURATION 97.9 % (95.0-99.0); ABG PCO2 38 mmHg (32-45)
[2020-02-03] MEDS: FAMOTIDINE/PF 20 MG/2 ML VIAL IV SCH (07:46)
[2020-02-03] MEDS: SODIUM CHLORIDE 0.9% 1000ML 1,000 ML IV SCH (07:46)
[2020-02-03] MEDS: ZOSYN 3.375GM+NS 50ML 50 ML IV SCH ×3 (07:46→15:20)
[2020-02-03] MEDS: PROPOFOL 1000 MG/100 ML 100 ML IV PRN (07:48)
[2020-02-03] MEDS ORDERED: PANTOPRAZOLE 40 MG/VIAL IVP SCH (09:00)
--- NOTE | 2020-02-03 09:31 | NUR ---
DR VERGARA HERE TO SEE PATIENT UPDATED. ORDERED TO START OG TUBE FEEDINGS RECOMMENDED BY DR AMIN.
[2020-02-03] MEDS ORDERED: FUROSEMIDE 10 MG/ML 2ML VIAL ONE ×2 (12:14→12:15)
[2020-02-03] MEDS ORDERED: FUROSEMIDE 10 MG/ML 2ML VIAL IV SCH ×2 (12:15→14:15)
--- NOTE | 2020-02-03 12:45 | NUR ---
DR AMIN HERE TO SEE PT UPDATED. HE WEANED PT OFF VENTILATOR AND EXTUBATED. HE SPOKE TO PT'S SISTER OVER THE PHONE AND UPDATED HER REGARDING STATUS AND PLAN OF CARE. QUESTIONS ANSWERED IN DETAIL. PATIENT ON 40% AEROSOL FACE MASK. NO RESPIRATORY DISTRESS NOTED.
[2020-02-03] MEDS ORDERED: FENTANYL CITRATE PF 50 MCG/1 ML 2ML VIAL IVP PRN (14:00)
[2020-02-03] MEDS ORDERED: IPRATROPIUM/ALBUTEROL SULFATE 3 ML SOLUTION IH PRN (14:00)
[2020-02-03] MEDS ORDERED: TRAMADOL /APAP 37.5MG/325MG TAB PO PRN (14:00)
--- NOTE | 2020-02-03 16:13 | NUR ---
DR PACHECO HERE TO SEE PT UPDATED. VERBAL ORDERS RECEIVED AND CARRIED OUT.
[2020-02-03] MEDS ORDERED: DILTIAZEM HCL 5 MG/ML 10 ML VIAL IV PRN (16:15)
[2020-02-03] MEDS: SOTALOL HCL 80 MG TABLET PO SCH ×2 (17:03→20:50)
[2020-02-03] MEDS ORDERED: METOPROLOL TARTRATE 25 MG TAB PO SCH (21:00)
[2020-02-04] VITALS (25 sets, daily range): BP systolic 87–126; BP diastolic 48–91
[2020-02-04] MEDS: ZOSYN 3.375GM+NS 50ML 50 ML IV SCH ×4 (00:22→23:12)
[2020-02-04] MEDS: PHARMACY COMMUNICATION MISC SCH (00:23)
[2020-02-04] MEDS: SODIUM CHLORIDE 0.9% 1000ML 1,000 ML IV SCH (00:23)
[2020-02-04] MEDS: SOTALOL HCL 80 MG TABLET PO SCH ×2 (04:17→20:42)
[2020-02-04 06:45] LABS: BASOPHILS % (AUTO) 0.1 % (0.0-5.0); EOSINOPHILS % (AUTO) 0.5 % (0.0-8.0); HEMATOCRIT 31.7 % (36-48); LYMPHOCYTES % (AUTO) 13.8 % (21.0-51.0); MEAN CORPUSCULAR HGB CONC 32.2 g/dL (32.0-36.0); MEAN CORPUSCULAR VOLUME 99.4 fL (79-99); MONOCYTES % (AUTO) 16.9 % (3.0-13.0); NEUTROPHILS % (AUTO) 67.4 % (40.0-77.0); NUCLEATED RED BLOOD CELLS 0.3 % (0.0-0.19); PLATELET COUNT (AUTO) 142 K/uL (130-400); RED BLOOD CELL COUNT(AUTO) 3.19 MIL/uL (4.00-5.50); RED CELL DISTRIBUTION WIDTH 15.7 % (11.0-15.5); WHITE BLOOD COUNT (AUTO) 7.4 K/uL (4.8-10.8)
[2020-02-04 07:11] LABS: CREATININE 0.8 mg/dL (0.5-1.5); PHOSPHORUS 1.9 mg/dL (2.5-4.9); POTASSIUM 3.9 mmol/L (3.5-5.1)
[2020-02-04] MEDS ORDERED: DILTIAZEM HCL 60 MG TABLET ONE (08:28)
[2020-02-04] MEDS: DILTIAZEM HCL 60 MG TABLET PO SCH ×4 (08:30→23:43)
[2020-02-04] MEDS: FAMOTIDINE/PF 20 MG/2 ML VIAL IV SCH (08:32)
--- NOTE | 2020-02-04 08:40 | NUR ---
RECEIVED CALL FROM DR PACHECO UPDATED HIM REGARDING STATUS INCLUDING CONVERSION TO ATRIAL FIBRILLATION OVERNIGHT. REVIEWED CURRENT MEDICATIONS. ORDERS RECEIVED AND CARRIED OUT.
[2020-02-04] MEDS ORDERED: FUROSEMIDE 10 MG/ML 4ML VIAL IV SCH (09:00)
--- NOTE | 2020-02-04 09:00 | NUR ---
DR VERGARA HERE TO SEE PATIENT UPDATED. NOTIFIED OF CHANGE TO CARDIAC RHYTHM AND NOW IN AFIB WITH HR 120'S; S/S OF ASPIRATION. BEDSIDE SWALLOW ORDERED. MBSS ORDERED FOR TOMORROW IF NEEDED.
[2020-02-04] MEDS: DILTIAZEM HCL 5 MG/ML 5 ML VIAL IVP PRN (10:04)
--- NOTE | 2020-02-04 12:28 | NUR ---
Spoke with Lainey (pt's daughter [phone]) and updated her on pt's current status for Ms. Kahn being high risk for ischemic stroke due to a-fib and no anticoagulants being able to be placed on pt due to head injury, daughter stated pt had living will and would be faxed to ICU fax machine, daughter also informed RN that pt has had a chronic issue with swallowing/dysphagia in regards to pills and would frequently resort to mixing medications with pudding to take oral meds, PT/ST/OT still pending to evaluate pt, family had opportunity to speak with pt over phone.
--- NOTE | 2020-02-04 13:09 | NUR ---
Pt currently unable to tolerate PO meds, pending hortensia Shoemaker MD to notify of elevated HR sustaining in the 120s-130s due to some anxiety unable to take PO meds.
[2020-02-04] MEDS ORDERED: DILTIAZEM HCL 5 MG/ML 5 ML VIAL IVP PRN (13:30)
[2020-02-04] MEDS ORDERED: DILTIAZEM HCL 125 MG/25 ML 125 MG in SODIUM CHLORIDE 0.9% 100 ML IV PRN (13:35)
[2020-02-04] MEDS ORDERED: PHARMACY COMMUNICATION MISC SCH ×3 (14:00→20:00)
[2020-02-04] MEDS: QUETIAPINE FUMARATE 25 MG TAB PO SCH (14:00)
--- NOTE | 2020-02-04 14:13 | NUR ---
DR AMIN HERE TO SEE PT. UPDATED. NOTIFIED OF RHYTHM CHANGE OVERNIGHT AND CURRENTLY AFIB 123 & GIVING CARDIZEM IV PER PROTOCOL. ALSO NOTIFIED OF S/S OF ASPIRATION (COUGHING WITH SIPS OF WATER). ORDERS RECEIVED AND CARRIED OUT.
[2020-02-04] MEDS ORDERED: MAGNESIUM SULFATE 1 GM in SODIUM CHLORIDE 0.9% 50 ML IM SCH (14:45)
--- NOTE | 2020-02-04 20:45 | NUR ---
DR. BRENNAN AMIN CALLED AT THIS TIME TO NOTIFY OF DECREASED BP SBP 80'S WHILE ASLEEP AND WHEN PT IS AWAKE LOW 100'S. 250 NS BOLUS WAS STARTED. PT DOES WAKE UP WITH UNCHANGED NEURO STATUS. NEW ORDERS RECEIVED TO HOLD SEROQUEL AND PRECEDEX FOR DECREASED BP AND MAY REPEAT 250NS BOLUS.
[2020-02-04] MEDS ORDERED: SODIUM CHLORIDE 0.9% 250 ML IV PRN (21:00)
[2020-02-04] MEDS ORDERED: DEXMEDETOMIDINE HCL 200 MCG in SODIUM CHLORIDE 0.9% 50 ML IV SCH (21:00)
--- NOTE | 2020-02-04 21:45 | NUR ---
CARDIZEM CARDIZEM WEANED OFF AT THIS TIME HR 70-80'S AFIB. PT ASLEEP NO DISTRESS NOTED 2ND NS BOLUS INFUSING WILL CONTINUE TO MONITOR.
[2020-02-05] VITALS (24 sets, daily range): BP systolic 88–123; BP diastolic 48–84
[2020-02-05] MEDS: DILTIAZEM HCL 60 MG TABLET PO SCH ×4 (05:38→23:58)
[2020-02-05 06:09] LABS: HEMATOCRIT 30.9 % (36-48); MEAN CORPUSCULAR HEMOGLOBIN 33.1 pg (27.0-33.0); MEAN CORPUSCULAR HGB CONC 33.3 g/dL (32.0-36.0); MEAN CORPUSCULAR VOLUME 99.4 fL (79-99); RED BLOOD CELL COUNT(AUTO) 3.11 MIL/uL (4.00-5.50); RED CELL DISTRIBUTION WIDTH 15.2 % (11.0-15.5); WHITE BLOOD COUNT (AUTO) 6.3 K/uL (4.8-10.8)
[2020-02-05 07:21] LABS: CARBON DIOXIDE 29 mmol/L (21-32); CHLORIDE 101 mmol/L (101-111); CREATININE 0.7 mg/dL (0.5-1.5); GLOMERULAR FILTR. RATE CALC 85 mL/min (>60); GLUCOSE,RANDOM 82 mg/dL (70-105); PHOSPHORUS 2.5 mg/dL (2.5-4.9); POTASSIUM 3.6 mmol/L (3.5-5.1); SODIUM SERUM 137 mmol/L (136-145); UREA NITROGEN, BLOOD 17 mg/dL (7-18)
[2020-02-05] MEDS: QUETIAPINE FUMARATE 25 MG TAB PO SCH (08:17)
[2020-02-05] MEDS: FAMOTIDINE/PF 20 MG/2 ML VIAL IV SCH (08:17)
[2020-02-05] MEDS: ZOSYN 3.375GM+NS 50ML 50 ML IV SCH ×2 (08:17→16:52)
[2020-02-05] MEDS: SOTALOL HCL 80 MG TABLET PO SCH ×2 (08:17→19:54)
--- NOTE | 2020-02-05 08:45 | NUR ---
DYSPHAGIA EVAL COMPLETED. NO S/S OF ASPIRATION NOTED AT BEDSIDE. RECOMMEND REGULAR SOLIDS, THIN LIQUIDS, PILLS CRUSHED WITH APPLESAUCE. Pt STATED TO HAVE OCCASIONAL DIFFICULTY SWALLOWING AND FEELS HER ESOPHAGUS IS NARROWING. MBSS AND/OR GI CONSULT RECOMMENDED TO FURTHER EVALUATE. TELEPHONE ADVICE NURSE COORDINATED CARE AND RECOMMENDATION WITH NURSE MELVIN. Addendum: 02/05/[address] [facility] Amended: Links added.
[2020-02-05] MEDS: FUROSEMIDE 20 MG TABLET PO SCH (09:00)
[2020-02-05] MEDS: SPIRONOLACTONE 25 MG TAB PO SCH ×2 (09:00→19:54)
--- NOTE | 2020-02-05 09:30 | NUR ---
HOLD MBSS. Pt'S STATUS CHANGED AND WAS UNABLE TO TRANSFER TO RADIOLOGY ROOM FOR MBSS. PROJECT OFFICER WILL ATTEMPT MBSS TOMORROW IF PATIENT'S STATUS IS STABLE. PROJECT OFFICER COORDINATED WITH NURSE BERNARD. Addendum: 02/05/[address] [facility] Amended: Links added.
--- NOTE | 2020-02-05 09:33 | NUR ---
After administration of betapace and seroquel, pt became HoTn with MAPs in the mid 40's (BP-59/38). Bolus of NS IVF 250 was administered and subsequent BP following bolus was 80/51 with MAPs in the low 60's (approximately 61). Paging Dr. Yap to notify him of pt's status and current intervention.
[2020-02-05] MEDS ORDERED: NOREPINEPHRINE 4MG/NS 250ML 250 ML IV SCH (09:45)
--- NOTE | 2020-02-05 09:54 | NUR ---
Dr. Yap informed of pt's MD Mehnaz ordered to hold diuretics and continue to monitor pt status.
--- NOTE | 2020-02-05 12:45 | NUR ---
Dr. James rounded on pt, pt lethargic but arousable to light stimulation, informed MD that pt had received first dose of Seroquel in AM d/t previous confusion/anxiety, pt still following commands, responsive but exhibiting drowsiness, MD ordered to continue to observe pt's mental status and if unresponsive to obtain a stat CT head but if continues to be arousable to continue to monitor for CT in AM, MD also ordered to avoid medications that could inhibit pt's alertness.
--- NOTE | 2020-02-05 14:25 | NUR ---
ROMAN NOTIFICATION - Tube Feeding Recommendations Recommend Jevity 1.5, Initiate at 25mls/hr for first 5 hrs. Advance as tolerated by 5 mL every 5 hours to goal rate. Goal rate: 50mls/hr (1800 kcal, 77gm Protein). Recommendations provided to Pending MBSS. ROMAN to continue to monitor. Addendum: 02/05/20 at [address] RD Amended: Links added.
--- NOTE | 2020-02-05 19:31 | NUR ---
PATIENT RECEIVED IN BED, AAOX3 YET EASILY CONFUSED AND FORGETFUL. PT IS POD #, WITH DRESSING D/I. O2 2 LITERS VIA NC WITH SATURATIONS AT 100%. CURRENTLY INFUSING ARE LEVOPHED @0.03MCG/KG/MIN VIA RIGHT IJ CENTRAL LINE. PER REPORT PATIENT WAS PLACED ON LEVOPHED AROUND 1000 D/T HYPOTENSION WHILE CARDIZEM INFUSING. NGT TO RIGHT NARE, JEVITY 1.5 INITIATED AT THIS TIME. POC DISCUSSED WITH PATIENT. F/C DRAINING TO GRAVITY WITH CLEAR YELLOW URINE NOTED. TELEMETRY WITH AFIB 121. WILL CONT TO MONITOR CLOSELY.
[2020-02-05] MEDS: POTASSIUM CHLORIDE 20MEQ/100ML 100 ML IV PRN (20:11)
[2020-02-06] VITALS (37 sets, daily range): BP systolic 97–128; BP diastolic 46–86
[2020-02-06] MEDS: ZOSYN 3.375GM+NS 50ML 50 ML IV SCH ×4 (00:28→23:37)
[2020-02-06 03:56] LABS: HEMATOCRIT 31.8 % (36-48); MEAN CORPUSCULAR HEMOGLOBIN 32.1 pg (27.0-33.0); MEAN CORPUSCULAR HGB CONC 31.8 g/dL (32.0-36.0); NUCLEATED RED BLOOD CELLS 0.6 % (0.0-0.19); RED BLOOD CELL COUNT(AUTO) 3.15 MIL/uL (4.00-5.50); RED CELL DISTRIBUTION WIDTH 15.3 % (11.0-15.5)
[2020-02-06 04:03] LABS: CREATININE 0.8 mg/dL (0.5-1.5); POTASSIUM 3.8 mmol/L (3.5-5.1)
[2020-02-06] MEDS: DILTIAZEM HCL 60 MG TABLET PO SCH ×4 (04:43→23:39)
--- NOTE | 2020-02-06 06:10 | NUR ---
PATIENT AWAKE, ORAL CARE PROVIDED FOR PATIENT. PATIENT IS AAOX3, NO ACUTE DISTRESS OR C/O PAIN VOICED. PATIENT STATES SHE SLEPT WELL AND FEELS RESTED. PATIENT REMEMBERED SHE IS TO HAVE A CT SCAN DONE THIS MORNING. WILL CONT TO MONITOR CLOSELY.
[2020-02-06] MEDS: FAMOTIDINE/PF 20 MG/2 ML VIAL IV SCH (08:37)
[2020-02-06] MEDS: SPIRONOLACTONE 25 MG TAB PO SCH (09:00)
[2020-02-06] MEDS: QUETIAPINE FUMARATE 25 MG TAB PO SCH (09:00)
[2020-02-06] MEDS: FUROSEMIDE 20 MG TABLET PO SCH (09:00)
--- NOTE | 2020-02-06 09:10 | NUR ---
MBSS COMPLETED + ASPIRATION (SILENT) WITH ALL TEXTURES. RECOMMEND NPO, SHORT TERM ALTERNATE MEANS OF NUTRITION/HYDRATION. REPEAT MBSS WITHIN A WEEK OR TWO AFTER TARGETING SWALLOWING GOALS. APPLICATION DEVELOPMENT SPECIALIST REVIEWED RESULTS AND RECOMMENDATIONS WITH Pt AND NURSE. ALL QUESTIONS WERE ANSWERED AT THIS TIME. Addendum: 02/06/20 at 1036 by [facility] Amended: Links added. Addendum: 02/06/[address] [facility] ADDITION TO FIRST NOTE: RECOMMENDATIONS: DYSPHAGIA THERAPY 3-5XWEEK TO INCREASE ORAL MOTOR STRENGTH AND PHARYNGEAL SWALLOW: LTG#1: Pt WILL TOLERATE LEAST RESTRICTIVE DIET TO MEET NUTRITION/HYDRATION WITH NO S/S OF ASPIRATION. LTG#2: SKILLED EDUCATION Pt/FAMILY/STAFF STG#1: Pt WILL PARTICIPATE IN LARYNGEAL ELEVATION/EXCURSION EXERCISES WITH 80% ACCURACY. STG#2: Pt WILL PARTICIPATE IN TONGUE BASE RETRACTION EXERCISES WITH 80% ACCURACY. STG#3: Pt WILL PARTICIPATE IN ORAL MOTOR EXERCISES WITH 80% ACCURACY. STG#4: Pt WILL TOLERATE THERAPEUTIC TRIALS OF ICE CHIPS WITH NO OVERT S/S OF ASPIRATION. STG#5: Pt WILL BE ABLE TO PARTICIPATE IN MBSS AFTER 1-2 WEEKS OF THERAPEUTIC INTERVENTION. STG#6: SKILLED EDUCATION Pt/FAMILY/STAFF. APPLICATION DEVELOPMENT SPECIALIST COORDINATED CARE WITH NURSE GRIMES.
[2020-02-06] MEDS ORDERED: DILTIAZEM HCL 5 MG/ML 10 ML VIAL IV PRN (10:45)
[2020-02-06] MEDS ORDERED: DILTIAZEM HCL 5 MG/ML 10 ML VIAL IV SCH (10:45)
--- NOTE | 2020-02-06 11:40 | NUR ---
CONFERENCE WITH FAMILY RESOURCE PROGRAM TEACHER REVIEWED MBSS RESULTS WITH FAMILY MEMBERS AT BEDSIDE. Pt AND FAMILY MEMBERS (DAUGHTER AND SISTER) WERE EDUCATED ON RISKS AND CONSEQUENCES OF ASPIRATION. RESOURCE PROGRAM TEACHER REVIEWED PLAN OF CARE AND RECOMMENDATIONS. Pt WILL BE RECEIVING SPEECH THERAPY TARGETING SWALLOWING GOALS 3-5X WEEK AND REPEAT MBSS WITHIN A WEEK OR TWO. ALL QUESTIONS WERE ANSWERED AT THIS TIME. RESOURCE PROGRAM TEACHER COORDINATED WITH NURSE GRIMES. Addendum: 02/06/[address] [facility] Amended: Links added.
--- NOTE | 2020-02-06 14:53 | NUR ---
INITIAL AND REFERRAL CALL PLACED TO SISTER/DAUGHTER/ PLACE DON SPEAKER, DISCUSSED PLAN OF CARE THEY UNDERSTOOD FOR PATIENT. SISTER STATES THAT PATIENT HAS BEEN TOSTRH IN THE PAST POST HIP FRACTURE AND THAT WOULD BE HER CHOICE AGAIN. STATES PREVIOUSLYY DRIVING, OWN BUSINESS, AND INDEPENDENT, NO DME, AND HOME SAFE AND ACCESSIBLE. ADVISED THEM WOUDL CIRICL BACK AND SPEAK WITH PATIENT TO CONFIRM HER CHOICE SPOKE TO PATIENT AT BEDSIDE- AAOX3, AGREES WITH [facility], CONFIRMS PLAN, ORDER PLACED RECD BY DR. EMILY ENRIQUEZ, CALL TO BONITA TO INFORM HER OF TEMPORARY TUBE FEEDING, STATES IWLL REVIEW ADVISED CINTIA GRIMES AT BEDSIDE THAT COVID FORM NEEDS SIGNING BY DR. Rao IN AM MOT, EMS, COVID AT FRONT OF CHART AND TAGGED. Addendum: 02/06/20 at 1459 by BERTHA SANTOS RN Amended: Links added.
[2020-02-06] MEDS ORDERED: AMIODARONE HCL 150 MG in DEXTROSE 5%-WATER 100 ML IV SCH (15:00)
[2020-02-06] MEDS: AMIODARONE HCL 360 MG in DEXTROSE 5%-WATER 200 ML IV SCH (15:54)
[2020-02-06] MEDS: DOCUSATE SODIUM 100 MG CAP PO SCH (20:23)
[2020-02-06] MEDS: FERROUS SULFATE 325 MG TABLET.DR PO SCH (20:25)
[2020-02-07] VITALS (24 sets, daily range): BP systolic 101–129; BP diastolic 54–88
[2020-02-07] MEDS: AMIODARONE HCL 360 MG in DEXTROSE 5%-WATER 200 ML IV SCH (00:24)
[2020-02-07 03:48] LABS: BASOPHILS % (AUTO) 0.2 % (0.0-5.0); EOSINOPHILS % (AUTO) 1.6 % (0.0-8.0); HEMATOCRIT 29.6 % (36-48); LYMPHOCYTES % (AUTO) 18.9 % (21.0-51.0); MEAN CORPUSCULAR HEMOGLOBIN 31.8 pg (27.0-33.0); MEAN CORPUSCULAR HGB CONC 32.4 g/dL (32.0-36.0); MONOCYTES % (AUTO) 17.8 % (3.0-13.0); NEUTROPHILS % (AUTO) 60.6 % (40.0-77.0); PLATELET COUNT (AUTO) 169 K/uL (130-400); RED BLOOD CELL COUNT(AUTO) 3.02 MIL/uL (4.00-5.50); WHITE BLOOD COUNT (AUTO) 5.6 K/uL (4.8-10.8)
[2020-02-07 04:19] LABS: ALBUMIN 2.4 g/dL (3.5-5.0); BILIRUBIN,DIRECT 0.3 mg/dL (0.0-0.3); BILIRUBIN,TOTAL 0.6 mg/dL (0.2-1.0); CREATININE 0.6 mg/dL (0.5-1.5); MAGNESIUM 1.7 mg/dL (1.80-2.40); POTASSIUM 3.5 mmol/L (3.5-5.1); THYROID STIMULATING HORMONE 1.6 uIU/mL (0.36-3.74); TOTAL PROTEIN, SERUM 6.9 g/dL (6.0-8.3)
[2020-02-07] MEDS: MAGNESIUM 2GM PREMIX 50ML 50 ML IV SCH (04:56)
[2020-02-07] MEDS: POTASSIUM CHLORIDE 20MEQ/100ML 100 ML IV PRN (04:57)
[2020-02-07] MEDS: DILTIAZEM HCL 60 MG TABLET PO SCH ×3 (05:32→20:50)
[2020-02-07] MEDS: ASCORBIC ACID 500 MG TAB PO SCH (09:00)
--- NOTE | 2020-02-07 09:00 | NUR ---
SWALLOWING TREATMENT COMPLETED. S: Pt COOPERATIVE WITH ALL THERAPEUTIC SWALLOWING GOALS. Pt CURRENTLY ON NG TUBE FEEDING. Pt STABLE AND IN GOOD STATUS TO PROCEED WITH THERAPY. O: Pt CURRENTLY TARGETING SWALLOWING GOALS, RESULTS ARE FOLLOWS: 1. Pt PARTICIPATED IN LARYNGEAL ELEVATION/EXCURSION EXERCISES WITH 90% ACCURACY. 2. Pt PARTICIPATED IN TONGUE BASE RETRACTION EXERCISES WITH 100% ACCURACY. 3. Pt PARTICIPATED IN ORAL MOTOR EXERCISES WITH 100% ACCURACY. 4. SKILLED EDUCATION Pt/FAMILY/STAFF: COMPLETED. RN LVN SPOKE TO TAMMI (DAUGHTER) OVER THE PHONE AND ANSWERED ALL QUESTIONS AT THIS TIME. A: RN LVN EDUCATED Pt OF RISKS AND CONSEQUENCES OF ASPIRATION. Pt VERBALIZED UNDERSTANDING AND COOPERATION WITH SWALLOWING GOALS. R: RECOMMEND NPO AND CONTINUATION OF NG TUBE FEEDING. REPEAT MBSS WITHIN A WEEK. RN LVN COORDINATED CARE AND RECOMMENDATIONS WITH NURSE PRIEST. RN LVN WILL CONTINUE TO FOLLOW Pt. Addendum: 02/07/[address] [place] [facility] Amended: Links added.
[2020-02-07] MEDS: FAMOTIDINE/PF 20 MG/2 ML VIAL IV SCH (09:06)
[2020-02-07] MEDS: FERROUS SULFATE 325 MG TABLET.DR PO SCH ×2 (09:06→20:49)
[2020-02-07] MEDS: ZOSYN 3.375GM+NS 50ML 50 ML IV SCH ×2 (09:06→15:42)
[2020-02-07] MEDS: DOCUSATE SODIUM 100 MG CAP PO SCH (09:12)
--- NOTE | 2020-02-07 10:40 | NUR ---
DR. PEREIRA HERE AND ASSESSED PT AND ORDERS NOTED. DR. PEREIRA SPOKE WITH DAUGHTER AND SISTER TO GIVE THEM UPDATE. DR. PEREIRA SPOKE WITH MANAGER OF INTERNAL AUDIT JOSE KELSEY AND REQUESTED FOR DAUGHTER AND SISTER TO VISIT WITH PATIENT TOMORROW AND WILL CLEAR IT WITH SECURITY.
--- NOTE | 2020-02-07 11:30 | NUR ---
PHYSICAL THERAPY HERE AND STOOD PT OUT OF BED AND THEN TO CHAIR, NO PROBLEMS NOTED.
[2020-02-07] MEDS: ACETAMINOPHEN 325 MG TAB PO PRN ×2 (12:39→22:11)
--- NOTE | 2020-02-07 14:30 | NUR ---
SERVANDO WERE REMOVED FROM CRANIOTOMY SITE AND INCISION WAS LEFT OPEN TO AIR INSTRUCTED BY DR. PEREIRA.
--- NOTE | 2020-02-07 16:39 | NUR ---
NGT FEEDING= DISCHARGE PLANNING BARRIER CALL FROM [facility]. CANNOT TAKE PT WITH NGT, TECHNICIAN ASSISTANT NOTES SAY RETEST MBSS IN ONE WEEK, ALSO PT STATES DOES NOT WANT A PEG. CALL TO ,STATES REVIEW FINDING W TECHNICIAN ASSISTANT, ASK WILLWEEK OF WAITING MAKE APPRECIABLE CHANGE TO DYSPHAGIA? ALSO EDUCATE PT ON PEG BENENFIT/RISK SPOKE TO PATIENT AT BEDSIDE. EXPLAINED PEG RISK/BENEFIT. EXPLAINED THAT NO PLACEMENT AND THEREFOR NO INTENSIVE REHAB IS POSSIBLE UNTIL NGT IS OUT. EXPLAINED STRH WILLNOT TAKE WITH NGT. PT EDUCATED THAT PEG SOMETIMES IS TEMPORARY MEASURE TO HELP WITH SPEECH THERPAY TO REGAIN FUNCTION Addendum: 02/07/20 at 1645 by BERTHA SANTOS RN Amended: Links added.
--- NOTE | 2020-02-07 17:50 | NUR ---
DR. MARRERO HERE AND SPOKE WITH PATIENT AND DISCUSSED THE PEG TUBE AND PATIENT AGREED TO HAVING PEG. PT STATES THAT SHE WILL DO WHAT IS NECESSARY TO BE ABLE TO GO TO REHAB.
--- NOTE | 2020-02-07 20:00 | NUR ---
NURSING ROUNDS Pt received resting in bed on high chakraborty's, noted coughing in between, using the yankeur catheter to suction herself, mod amt of whitish tannish thick phlegm noted. Am nurse reported that she stopped the ongoing tube feeding bec of pt's too much coughing. Also reported about the plan of Dr. Jennings to consult GI in the am for the pt to go for a PEG tube placement in the am. Will keep the pt npo for now, meds crushed and ngt flushed after checking for placement. Patient denies any pain at this time, running afib with rvr in the 110'2 to 130's but non sustained , mostly in the 80's to 90's. Cardizem adm through the NGT. No chest pain, no shortness of breath, on 2l of O2 per nasal cannula. NS at 10 cc's per hour. Claire catheter patent draining to adequate amount of urine via the bedside drainage bag.
[2020-02-07] MEDS: AMIODARONE HCL 200 MG TABLET PO SCH (20:49)
[2020-02-07] MEDS: DOCUSATE NA 100MG/10ML UDCUP NG SCH (21:15)
[2020-02-07] MEDS ORDERED: SODIUM CHLORIDE 0.9% 1000ML 1,000 ML IV ONE (22:34)
[2020-02-07] MEDS: SODIUM CHLORIDE 0.9% 1000ML 1,000 ML IV SCH (22:41)
[2020-02-08] VITALS (20 sets, daily range): BP systolic 102–139; BP diastolic 58–90
[2020-02-08] MEDS: ZOSYN 3.375GM+NS 50ML 50 ML IV SCH ×4 (00:17→23:39)
[2020-02-08] MEDS: DILTIAZEM HCL 60 MG TABLET PO SCH ×5 (02:56→23:36)
[2020-02-08 04:05] LABS: HEMATOCRIT 30.1 % (36-48); MEAN CORPUSCULAR HEMOGLOBIN 32.5 pg (27.0-33.0); MEAN CORPUSCULAR HGB CONC 32.9 g/dL (32.0-36.0); MEAN CORPUSCULAR VOLUME 98.7 fL (79-99); RED BLOOD CELL COUNT(AUTO) 3.05 MIL/uL (4.00-5.50); WHITE BLOOD COUNT (AUTO) 4.3 K/uL (4.8-10.8)
[2020-02-08 04:23] LABS: CREATININE 0.7 mg/dL (0.5-1.5); MAGNESIUM 1.9 mg/dL (1.80-2.40); POTASSIUM 3.8 mmol/L (3.5-5.1)
--- NOTE | 2020-02-08 07:50 | NUR ---
DR. PACHECO CALLED TO CHECK ON PATIENT AND WAS ADVISED OF PT'S PRESENT HR AND RHYTHM.
[2020-02-08] MEDS: AMIODARONE HCL 200 MG TABLET PO SCH ×2 (08:17→20:39)
[2020-02-08] MEDS: MAGNESIUM 2GM PREMIX 50ML 50 ML IV SCH (08:18)
[2020-02-08] MEDS: FAMOTIDINE/PF 20 MG/2 ML VIAL IV SCH (08:21)
[2020-02-08] MEDS: FERROUS SULFATE 325 MG TABLET.DR PO SCH ×2 (08:21→20:39)
[2020-02-08] MEDS: DOCUSATE NA 100MG/10ML UDCUP NG SCH ×2 (08:21→20:39)
[2020-02-08] MEDS: ASCORBIC ACID 500 MG TAB PO SCH (08:22)
--- NOTE | 2020-02-08 08:30 | NUR ---
SWALLOWING TREATMENT COMPLETED. S: Pt COOPERATIVE WITH ALL THERAPEUTIC SWALLOWING GOALS. Pt CURRENTLY ON NG TUBE FEEDING. Pt STABLE AND IN GOOD STATUS TO PROCEED WITH THERAPY. O: Pt CURRENTLY TARGETING SWALLOWING GOALS, RESULTS ARE FOLLOWS: 1. Pt PARTICIPATED IN LARYNGEAL ELEVATION/EXCURSION EXERCISES WITH 80% ACCURACY. 2. Pt PARTICIPATED IN TONGUE BASE RETRACTION EXERCISES WITH 100% ACCURACY. 3. Pt PARTICIPATED IN ORAL MOTOR EXERCISES WITH 100% ACCURACY. 4. SKILLED EDUCATION Pt/FAMILY/STAFF: COMPLETED. A: STRUCTURAL LAYOUT WORKER EDUCATED Pt OF RISKS AND CONSEQUENCES OF ASPIRATION. Pt VERBALIZED UNDERSTANDING AND COOPERATION WITH SWALLOWING GOALS. P: RECOMMEND NPO AT THIS TIME. Pt AGREED TO PENITENTIARY ALTERNATE MEANS OF NUTRITION/HYDRATION (PEG). STRUCTURAL LAYOUT WORKER RECOMMENDED THE CONTINUATION OF SPEECH THERAPY DURING THE LENGTH OF STAY IN THE HOSPITAL TO CONTINUE ADDRESSING SWALLOWING GOALS. Addendum: 02/08/[address] [facility] Amended: Links added.
--- NOTE | 2020-02-08 09:20 | NUR ---
CHARGE NURSE NOA SPOKE WITH DR. Sangeeta WATSON AND ADVISED HIM OF CONSULT AND ORDERS NOTED.
--- NOTE | 2020-02-08 11:30 | NUR ---
PATIENT'S DAUGHTER HERE AND SPOKE WITH DR. DIAZ CONCERNING PEG PLACEMENT. DAUGHTER AGREED WITH PATIENT PLAN OF CARE AND SIGNED CONSENT FOR EGD/PEG. SISTER ALSO VISITED WITH PATIENT.
--- NOTE | 2020-02-08 14:30 | NUR ---
PT WAS SAT UP BY PHYSICAL THERAPIST AND AGAIN SHE IS ABLE TO STAND WITH MINIMAL HELP AND TRANSFER TO CHAIR.
--- NOTE | 2020-02-08 14:34 | NUR ---
RD FOLLOW UP Pt s/p ST evaluation. Pt tolerating Tube feeding with no report of GI distress. Noted, LBM 02/01/20. Recommend to resume Tube feeding, Jevity 1.5, advancing to goal rate (50mls/hr) as medically feasible. Recommend stool softener/laxative as medically feasible. RD to continue to monitor. Please notify as nutrition concerns arise. Thank you. Addendum: 02/08/20 at [address] RD Amended: Links added.
[2020-02-08] MEDS: ACETAMINOPHEN 325 MG TAB PO PRN (17:45)
[2020-02-09] VITALS (24 sets, daily range): BP systolic 109–169; BP diastolic 82–114
[2020-02-09] MEDS: DILTIAZEM HCL 5 MG/ML 5 ML VIAL IVP PRN ×4 (03:53→22:04)
[2020-02-09 04:01] LABS: BASOPHILS % (AUTO) 0.2 % (0.0-5.0); EOSINOPHILS % (AUTO) 1.6 % (0.0-8.0); HEMATOCRIT 31.8 % (36-48); LYMPHOCYTES % (AUTO) 14.9 % (21.0-51.0); MEAN CORPUSCULAR HEMOGLOBIN 31.2 pg (27.0-33.0); MEAN CORPUSCULAR HGB CONC 32.1 g/dL (32.0-36.0); MEAN CORPUSCULAR VOLUME 97.2 fL (79-99); MONOCYTES % (AUTO) 18.3 % (3.0-13.0); PLATELET COUNT (AUTO) 189 K/uL (130-400); RED BLOOD CELL COUNT(AUTO) 3.27 MIL/uL (4.00-5.50); RED CELL DISTRIBUTION WIDTH 14.9 % (11.0-15.5); WHITE BLOOD COUNT (AUTO) 4.9 K/uL (4.8-10.8)
[2020-02-09 04:19] LABS: INR 0.99 (0.85-1.15); PARTIAL THROMBOPLASTIN TIME 27.3 SEC (26.3-35.5); PROTHROMBIN TIME 10.7 SEC (9.6-11.6)
[2020-02-09 04:30] LABS: CREATININE 0.6 mg/dL (0.5-1.5); PHOSPHORUS 2.7 mg/dL (2.5-4.9); POTASSIUM 3.9 mmol/L (3.5-5.1)
[2020-02-09] MEDS: DILTIAZEM HCL 60 MG TABLET PO SCH ×3 (05:40→17:38)
[2020-02-09] MEDS: AMIODARONE HCL 200 MG TABLET PO SCH ×2 (07:52→20:51)
[2020-02-09] MEDS: FERROUS SULFATE 325 MG TABLET.DR PO SCH ×2 (07:52→20:51)
[2020-02-09] MEDS: ZOSYN 3.375GM+NS 50ML 50 ML IV SCH ×2 (07:54→16:50)
[2020-02-09] MEDS: DOCUSATE NA 100MG/10ML UDCUP NG SCH ×2 (07:54→20:50)
[2020-02-09] MEDS: FAMOTIDINE/PF 20 MG/2 ML VIAL IV SCH (07:54)
[2020-02-09] MEDS: ASCORBIC ACID 500 MG TAB PO SCH (07:58)
--- NOTE | 2020-02-09 09:05 | NUR ---
TREATMENT ATTEMPTED Pt IN BED, AWAKE, BUT EXPERIENCING A HEADACHE. Pt SAID SHE HAS NOT RESTED AND AGREED TO DO THERAPY AT ANOTHER TIME. Pt CONTINUES WITH NG TUBE FEEDING AND PER NURSE, PEG PLACEMENT WAS POSTPONE DUE TO CHANGE IN STATUS. INSIDE OUTSIDE SALES REPRESENTATIVE COORDINATED WITH NURSE JESUS. INSIDE OUTSIDE SALES REPRESENTATIVE WILL CONTINUE TO FOLLOW Pt FOR SWALLOWING GOALS DURING LENGTH OF TIME IN HOSPITAL. Addendum: 02/09/[address] [facility] Amended: Links added.
[2020-02-09] MEDS: ACETAMINOPHEN 325 MG TAB PO PRN (09:30)
[2020-02-09] MEDS: METOPROLOL TARTRATE 25 MG TAB PO SCH ×3 (09:30→20:51)
--- NOTE | 2020-02-09 15:57 | NUR ---
HECTOR SPOKE TO SISTER ON THE PHONE- EARLIER THIS MONRING CM REASSURED HER THAT PATIENT HAS A BED AT [facility] WHEN SHE IS READY TO GO, WILL NOT LOSE SPOT. SISTER WORRIED STATED RN TOLD HER THAT PT COULD NOT HAVE THE PEG TODAY BECAUSE HER HEAT WAS IRREGUALR- UPDATED ON PLACE OF CARE. REVIEWED POLICY RE BELONGINGS/SECURITY WITH SISTER VIA PHONE AND PATIENT AT BEDSIDE- SISTER CONCERNED THAT PATIENT 'S THINGS WERE LOST- ASSURED HER THAT SECURITY HAS RECORD OF THEM, VERBALIZED UNDERSTANDING SISTER ATTEMPTED TO SPEAK TO PATIENT VIA PHONE, PATIENT VERY DROWSY , WILL ATTEMPT LATER Addendum: 02/09/20 at 1602 by BERTHA SANTOS RN CM Amended: Links added.
[2020-02-10] VITALS (18 sets, daily range): BP systolic 104–130; BP diastolic 59–106
[2020-02-10] MEDS: DILTIAZEM HCL 60 MG TABLET PO SCH ×4 (00:49→17:16)
[2020-02-10] MEDS: ZOSYN 3.375GM+NS 50ML 50 ML IV SCH ×3 (00:49→16:37)
[2020-02-10] MEDS: FAMOTIDINE/PF 20 MG/2 ML VIAL IV SCH (08:15)
[2020-02-10] MEDS: DOCUSATE NA 100MG/10ML UDCUP NG SCH ×2 (08:15→22:37)
[2020-02-10] MEDS: FERROUS SULFATE 325 MG TABLET.DR PO SCH ×2 (08:15→22:37)
[2020-02-10] MEDS: AMIODARONE HCL 200 MG TABLET PO SCH ×2 (08:15→22:37)
[2020-02-10] MEDS: METOPROLOL TARTRATE 25 MG TAB PO SCH ×3 (08:15→22:37)
[2020-02-10] MEDS: ASCORBIC ACID 500 MG TAB PO SCH (08:15)
[2020-02-10] MEDS: DIGOXIN 125 MCG TABLET PO SCH (14:25)
--- NOTE | 2020-02-10 15:10 | NUR ---
RECEIVED PATIENT ON CARDIAC CHAIR TRANSPORTED BY CARIDAD CHAMBERLAIN AND BHUMI HORTON. PATIENT DENIES ANY PAIN NOR SOB. DAUGHTER VISITING AT BEDSIDE. CALL LIGHT WITHIN REACH. TELE READING: AFIB/FLUTTER 100'S-120'S. INSTRUCTED TO CALL FOR ASSISTANCE.
[2020-02-10] MEDS: DILTIAZEM HCL 5 MG/ML 5 ML VIAL IVP PRN (17:26)
[2020-02-11] VITALS (31 sets, daily range): BP systolic 102–158; BP diastolic 60–94
[2020-02-11] MEDS: DILTIAZEM HCL 60 MG TABLET PO SCH ×3 (00:47→12:00)
[2020-02-11] MEDS: DILTIAZEM HCL 5 MG/ML 5 ML VIAL IVP PRN (05:00)
[2020-02-11 05:08] LABS: BASOPHILS % (AUTO) 0.2 % (0.0-5.0); EOSINOPHILS % (AUTO) 1.5 % (0.0-8.0); HEMATOCRIT 32.1 % (36-48); LYMPHOCYTES % (AUTO) 16.2 % (21.0-51.0); MEAN CORPUSCULAR HEMOGLOBIN 31.2 pg (27.0-33.0); MEAN CORPUSCULAR HGB CONC 31.8 g/dL (32.0-36.0); MEAN CORPUSCULAR VOLUME 98.2 fL (79-99); MONOCYTES % (AUTO) 23.5 % (3.0-13.0); NEUTROPHILS % (AUTO) 56.4 % (40.0-77.0); NUCLEATED RED BLOOD CELLS 0.7 % (0.0-0.19); PLATELET COUNT (AUTO) 179 K/uL (130-400); RED BLOOD CELL COUNT(AUTO) 3.27 MIL/uL (4.00-5.50); RED CELL DISTRIBUTION WIDTH 15.9 % (11.0-15.5); WHITE BLOOD COUNT (AUTO) 5.5 K/uL (4.8-10.8)
[2020-02-11 05:14] LABS: CREATININE 0.8 mg/dL (0.5-1.5); POTASSIUM 3.6 mmol/L (3.5-5.1)
[2020-02-11] MEDS: POTASSIUM CHLORIDE 20MEQ/100ML 100 ML IV PRN (05:48)
--- NOTE | 2020-02-11 08:00 | NUR ---
ORIENTATED TO HER CARE, PT WAS ABLE TO OPEN HER EYES TO SOUNDS, IN THE ROOM, ASK IF SHE WAS COLD , S TATED NO. TO QUESTION. NOTED NG TUBE TO HER RT NARE, PAUSE TUBE FEEDING TO CHECK NG PLACEMENT ASCULATATED OVER GASTRIC REGION , USE AIR BOLUS FOR PLACEMENT SOUND NGT IN PLACE, JEVITY AT 50 CCHR . HOB GRATHER THAB 45 DEGREE . UP ASPIRATION PECAUTION FOLLOW.
--- NOTE | 2020-02-11 08:05 | NUR ---
DAUGHTER . TAMMI CALLED , AND INFORMATION . RELATED OF PT . STATUS RE VIEW WITH PT. DAUGHTER CONCERN REGARDING LAST INTERACTION WITH HER MOTHER ,AND STATED THAT THE LAST DAYS . PT SHE HAS BEEN SLEEPY . . PT THIS AM WAS ABLE TO FOLLOW COMMANDS. HAND CUSTOMER LEADER ,FAIR. FEET PRESSES TO HANDS FAIR AND WAS ABLE TO FOCUS WITH VERBAL QUESTIONS. OPEN HER EYES AND CLOSE THEM BACK AGAIN ,PUPILS AT A 3 , SLUGISH . BUT REACTIONS NOTED DR. VELEZ AT THE BEDSIDE AND REVIEW WITH DAUGHTER CONCERNS REGARDING HER MOTHER,
--- NOTE | 2020-02-11 08:30 | NUR ---
STOP TUBE FEEDING ,DUE TO PENDING CT SCAN OF THE HEAD,..WITH OUT CONTRAST . CALL DEPT OF STAT DR. CHILDRESS . EXPLAIN TO PT OF PENDING CT SCAN OF THE HEAD ,WAS ABLE TO RELATE TO DR. KEVIN WASH FACE ,AND . ELEVATED ARMS UP ON PILLOW . CHECK ON HER Campbell CATH, SECURE TO RT THIGH; , AND . TO BEDSIDE CAMPBELL BAG WITH YELLOW URINE NOTED BED LEVEL DOWN . SIDE RAILS UP X 2 AND SEIZURE PADS ON.
[2020-02-11] MEDS: DOCUSATE NA 100MG/10ML UDCUP NG SCH ×2 (10:14→20:34)
[2020-02-11] MEDS: FERROUS SULFATE 325 MG TABLET.DR PO SCH ×2 (10:14→20:35)
[2020-02-11] MEDS: AMIODARONE HCL 200 MG TABLET PO SCH ×2 (10:15→20:35)
[2020-02-11] MEDS: DIGOXIN 125 MCG TABLET PO SCH (10:15)
[2020-02-11] MEDS: METOPROLOL TARTRATE 25 MG TAB PO SCH ×2 (10:19→14:00)
[2020-02-11] MEDS: ASCORBIC ACID 500 MG TAB PO SCH (10:19)
[2020-02-11] MEDS: FAMOTIDINE/PF 20 MG/2 ML VIAL IV SCH (10:20)
--- NOTE | 2020-02-11 10:39 | NUR ---
CHEST X RAY TAKEN ORDER .
--- NOTE | 2020-02-11 10:45 | NUR ---
TO CT SCAN VIA BED WITH STAFF . HOB UP . AND O2 VIA NC , NOTED .
--- NOTE | 2020-02-11 10:55 | NUR ---
TO C T SCAN OF THE HEAD . WITH CONTRAST , VIA BED AND X - CHEST X-RAY TAKEN ,WITH RESULTS PENDING, Addendum: 02/11/20 at 1339 by PARVEEN MAURICIO RN RN ADDENDUM ON TIME OF CT SC AN , PENDING LEFT ROOM AT 1055
--- NOTE | 2020-02-11 11:27 | NUR ---
PT BACK FROM THE CT SCAN . PER STAFF , REPORT . IMAGING RESULT IN THE CT SCAN . RESULTS WERE NOTED TO DR. VELEZ . REGARDING CT SCAN. RESULTS TO ROOM MAINTAIN HOB UP . KEPT TUBE FEEDING ON HOLD DUE TO PENDING , CARE .
--- NOTE | 2020-02-11 11:30 | NUR ---
PATRICIA CERTIFIED FAMILY MEDIATOR NURSE , CALLED .. DR RANDALL GERARDO. NURSE REGARDING CT SCAN ,RESULTS
--- NOTE | 2020-02-11 11:50 | NUR ---
DR. Sera MILLAN HERE ,AND ASSESSMENT .WITH DR. VELEZ AT THE BEDSIDE . INTUBATION . PROCESSS
[2020-02-11] MEDS ORDERED: MANNITOL 25% 50ML VIAL IV SCH (12:15)
[2020-02-11 12:19] LABS: ABG HCO3 31.4 mmol/L (21.0-28.0); ABG OXYGEN SATURATION 98.7 % (95.0-99.0); ABG PCO2 49 mmHg (32-45)
--- NOTE | 2020-02-11 12:20 | NUR ---
ROCURONIUM 6 CC IV , AND ETOMIDATE 20 MG IV GIVEN PRIOR INTUBATION PROCESS
--- NOTE | 2020-02-11 12:20 | NUR ---
INTUBATION . ET TUBE A SIZE 7.5 ORALLY , AND 22 AT THE LIP /
[2020-02-11] MEDS ORDERED: PROPOFOL 1000 MG/100 ML 0 ML IV ONE (12:26)
--- NOTE | 2020-02-11 12:30 | NUR ---
mannitol 25 mg iv push slowly lwas given . as per DR. YANA KEVIN . Addendum: 02/11/20 at 1407 by PARVEEN MAURICIO RN RN ADDENDUM. TO CHARTING, MANNITOL 12.5 MG IV PUSH WAS GIVEN ORDER FOR A TOTAL OF [address] KEVIN . TIME OF 1230
--- NOTE | 2020-02-11 12:40 | NUR ---
INTUBATED AFTER CT SCAN AT 12:10PM . PRIOR TO THAT DR VELEZ SPOKE TO PT. PT LETHARGIC, FOLLOWS COMMANDS, AND ABLE TO MOVE ALL EXTREMITIES. AWAKE, ORIENTED TO PERSON ,PLACE, TIME AND SITUATION. BUT DROWSY.
[2020-02-11] MEDS ORDERED: SODIUM CHLORIDE 3% 500 ML IV SCH (12:45)
[2020-02-11] MEDS: SODIUM CHLORIDE 0.9% 1000ML 1,000 ML IV SCH ×3 (12:45→18:30)
--- NOTE | 2020-02-11 13:00 | NUR ---
TO ICU . INTUBATED, WITH STAFF . REPORT , GIVEN TO ICU NURSE , V/S PRIOR TRANSFER B/P OF 132/89 HR OF114, O2 SAT OF 99% INTUBATED ,
--- NOTE | 2020-02-11 13:09 | NUR ---
TO ICU S/P INTUBATION RECIEIVED AT 12:40PM BEDSIDE SBAR REPORT FROM MARIA ISABEL CHAMBERLAIN. ON DIPRIVAN AND NACL. SEDATED. VS STABLE
--- NOTE | 2020-02-11 13:30 | NUR ---
DR PEREIRA HERE TO EXAMINE PT AND CT SCANS
--- NOTE | 2020-02-11 13:32 | NUR ---
TELEPHONE CONSENT FOR EVACUATION OF HEMATOMA OBTAINED FROM DAUGHTER TAMMI
[2020-02-11] MEDS ORDERED: PHENYLEPHRINE HCL 50 MG in SODIUM CHLORIDE 0.9% 250 ML IV PRN (13:45)
[2020-02-11] MEDS ORDERED: ROCURONIUM 10MG/1ML SYR 10 MG/ML ML ONE (13:52)
[2020-02-11] MEDS ORDERED: FENTANYL CITRATE PF 50 MCG/1 ML 2ML VIAL ONE (13:57)
[2020-02-11] MEDS ORDERED: ESMOLOL HCL 10 MG/ML 10 ML VIAL ONE (13:58)
[2020-02-11] MEDS ORDERED: PROPOFOL 1000 MG/100 ML 100 ML IV ONE (14:06)
--- NOTE | 2020-02-11 14:16 | NUR ---
TAKEN TO OR WITHOUT INCIDENT
[2020-02-11] MEDS ORDERED: CEFAZOLIN SODIUM 1 GM VIAL ONE ×4 (14:20→14:42)
[2020-02-11] MEDS ORDERED: THROMBIN-JMI 20000 UNIT KIT TP ONE (14:20)
[2020-02-11] MEDS ORDERED: BUPIVACAINE/EPI/PF 0.25% 30ML VIAL IJ ONE ×2 (14:20→14:35)
[2020-02-11] MEDS ORDERED: SODIUM CHLORIDE 0.9% 10 ML VIAL ONE (14:43)
--- NOTE | 2020-02-11 15:45 | NUR ---
RECEIVED PT FROM OR , SBAR REPORT FROM MANAGER APPLICATION DEVELOPMENT AND OR NURSE RECEIVED
[2020-02-11 15:59] LABS: ABG BASE EXCESS 3.3 mmol/L (-2.0-3.0); ABG HCO3 23.8 mmol/L (21.0-28.0); ABG OXYGEN SATURATION 98.2 % (95.0-99.0); ABG PCO2 24 mmHg (32-45)
[2020-02-11] MEDS ORDERED: AMIODARONE HCL 360 MG in DEXTROSE 5%-WATER 200 ML IV SCH (17:00)
--- NOTE | 2020-02-11 19:55 | NUR ---
FAMILY UPDATE SPOKE TO TAMMI, EXPLAINED PT IS ON VENT WITH SEDATION AND BEING MONITORED CLOSELY FOR BLEED
[2020-02-11] MEDS ORDERED: CEFAZOLIN SODIUM 1 GM VIAL IVP SCH (22:00)
[2020-02-11] MEDS ORDERED: AMIODARONE HCL 450 MG in DEXTROSE 5%-WATER 250 ML IV SCH (23:00)
[2020-02-12] VITALS (23 sets, daily range): BP systolic 89–166; BP diastolic 21–98
[2020-02-12] MEDS: PROPOFOL 1000 MG/100 ML 100 ML IV SCH ×2 (00:46→05:16)
[2020-02-12] MEDS: SODIUM CHLORIDE 0.9% 1000ML 1,000 ML IV SCH ×2 (01:27→20:33)
[2020-02-12 03:20] LABS: HEMATOCRIT 29.5 % (36-48); MEAN CORPUSCULAR HGB CONC 32.5 g/dL (32.0-36.0); MEAN CORPUSCULAR VOLUME 98.3 fL (79-99); NUCLEATED RED BLOOD CELLS 0.7 % (0.0-0.19); PLATELET COUNT (AUTO) 161 K/uL (130-400); RED CELL DISTRIBUTION WIDTH 16.2 % (11.0-15.5)
[2020-02-12 03:36] LABS: BAND NEUTROPHILS % (MANUAL) 4 % (0-2); EOSINOPHILS % (MANUAL) 2 % (1-6); LYMPHOCYTES % (MANUAL) 12 % (22-44); MAN.DIFF COMMENT-IMPRESSION MANUAL DIFFERENTIAL; MONOCYTES % (MANUAL) 8 % (2-9); PLATELET MORPHOLOGY COMMENT ADEQUATE; SEGMENTED NEUTROPHILS % 74 % (40-70)
[2020-02-12 03:50] LABS: ALANINE AMINOTRANSFERASE 16 U/L (12-78); ALBUMIN 2.3 g/dL (3.5-5.0); ASPARTATE AMINOTRANSFERASE 22 U/L (10-37); BILIRUBIN,TOTAL 0.7 mg/dL (0.2-1.0); CARBON DIOXIDE 26 mmol/L (21-32); CHLORIDE 99 mmol/L (101-111); CREATINE KINASE, TOTAL 11 U/L (21-232); CREATININE 0.6 mg/dL (0.5-1.5); GLOMERULAR FILTR. RATE CALC 102 mL/min (>60); GLUCOSE,RANDOM 108 mg/dL (70-105); MYOGLOBIN 38 ng/mL (10-92); POTASSIUM 3.3 mmol/L (3.5-5.1); SODIUM SERUM 132 mmol/L (136-145); TOTAL PROTEIN, SERUM 6.3 g/dL (6.0-8.3); TROPONIN I < 0.04 ng/mL (0.00-0.06); UREA NITROGEN, BLOOD 14 mg/dL (7-18)
[2020-02-12 03:58] LABS: ABG BASE EXCESS 0.5 mmol/L (-2.0-3.0); ABG HCO3 20.9 mmol/L (21.0-28.0); ABG OXYGEN SATURATION 99.4 % (95.0-99.0); ABG PCO2 24 mmHg (32-45)
[2020-02-12] MEDS: POTASSIUM CHLORIDE 20MEQ/100ML 100 ML IV PRN ×2 (04:07→07:48)
[2020-02-12] MEDS: MAGNESIUM 2GM PREMIX 50ML 50 ML IV SCH (05:16)
--- NOTE | 2020-02-12 06:55 | NUR ---
0600 CT brain done as per Dr James's orders. K level 3.3. KCl 20meq IVPB dose # 1 of 2 infusing. Magnesium level 1.7. Magnesium 2 grams IVPB hung to infuse over 2 hours.
[2020-02-12] MEDS: AMIODARONE HCL 200 MG TABLET PO SCH (07:51)
[2020-02-12] MEDS ORDERED: DIGOXIN 250 MCG/ML 2ML AMP IV SCH (08:00)
[2020-02-12] MEDS ORDERED: PHARMACY COMMUNICATION MISC SCH ×2 (08:30→09:15)
--- NOTE | 2020-02-12 08:50 | NUR ---
HOLD TREATMENT Pt CURRENTLY INTUBATED. SPEECH THERAPY ON HOLD UNTIL Pt GETS EXTUBATED. HARBOR TUG CAPTAIN COORDINATED CARE AND RECOMMENDATIONS WITH NURSE CARIDAD. Addendum: 02/12/[address] [facility] Amended: Links added.
[2020-02-12] MEDS: CEFAZOLIN SODIUM 1 GM VIAL IVP SCH ×2 (08:59→16:43)
[2020-02-12] MEDS: DOCUSATE NA 100MG/10ML UDCUP NG SCH ×2 (08:59→20:20)
[2020-02-12] MEDS ORDERED: PANTOPRAZOLE SODIUM 40 MG TABLET.DR PO SCH (09:00)
[2020-02-12] MEDS: FERROUS SULFATE 300 MG/5 ML LIQ UDCUP PO SCH ×2 (09:24→20:59)
[2020-02-12] MEDS: ASCORBIC ACID 500 MG TAB PO SCH (09:25)
[2020-02-12] MEDS ORDERED: LABETALOL HCL 5 MG/ML 20ML VIAL IV PRN (11:00)
[2020-02-12] MEDS ORDERED: MANNITOL 25% 50ML VIAL IV PRN (11:00)
[2020-02-12] MEDS ORDERED: COMPOUND IV MISC 1 EACH IVSOLN MISC PRN (11:00)
[2020-02-12] MEDS: LANSOPRAZOLE 15 MG SOLU TAB PEG SCH (11:15)
[2020-02-12] MEDS: ARTIFICAL TEARS SOL 15 ML OU SCH ×2 (12:02→20:20)
[2020-02-12] MEDS: LEVETIRACETAM 500 MG in SODIUM CHLORIDE 0.9% 100 ML IV SCH ×2 (12:03→20:20)
[2020-02-12] MEDS ORDERED: SODIUM CHLORIDE 0.9% 1000ML 1,000 ML IV SCH (13:45)
[2020-02-12] MEDS: ALBUTEROL SULFATE 0.042% 1.25 MG/3 ML INH IH SCH ×2 (14:14→22:07)
[2020-02-12] MEDS: SODIUM CHLORIDE 3% FOR INHALATION 4 ML/AMP VIAL.NEB IH SCH ×2 (14:14→22:07)
--- NOTE | 2020-02-12 15:14 | NUR ---
ROMAN FOLLOW UP Pt is s/p craniotomy x 2. Tube feeding was held. LBM 02/01/20; Colace in place. Recommend resume tube feeding when medically feasible. Advance as tolerated to goal rate of Jevity 1.5@ 40mls/hr. Propofol @18mls/hr providing 475 kcal. Flushes 165 [id number]. ROMAN to continue to monitor. Addendum: 02/12/20 at [address] RD Amended: Links added.
[2020-02-12 15:58] LABS: ABG BASE EXCESS 0.5 mmol/L (-2.0-3.0); ABG HCO3 24.9 mmol/L (21.0-28.0); ABG OXYGEN SATURATION 97.3 % (95.0-99.0); ABG PCO2 39 mmHg (32-45)
--- NOTE | 2020-02-12 16:03 | NUR ---
DR MILLAN IN TO SEE PT, CHANGED TO CPAP MODE, PT IS LETHARGIC, UNABLE TO FLOOR INSTALLATION MECHANIC HEAD OFF PILLOW, BUT IS EASILY AROUSED AND ABLE TO FOLLOW COMMANDS WHEN PROMPTED. PT IS ABLE TO RAISE BOTH ARMS, MOVE BOTH KNEES EQUALLY, AND HAS EXTREMITY SENSATION INTACT.
--- NOTE | 2020-02-12 16:10 | NUR ---
PT WILL REMAIN ON CPAP UNTIL 6PM, THEN CHANGE TO PRESSURE CONTROL VENTILLATION. MAY HAVE VERY LIGHT SEDATION IF PT GETS ANXIOUS.
[2020-02-12] MEDS: SODIUM CHLORIDE 3% 500 ML IV SCH (17:30)
--- NOTE | 2020-02-12 20:11 | NUR ---
SPOKE WITH DR BAKER AND INFORMED HIM OF REQUEST FOR PEG TUBE PLACEMENT IN AM. NO NEW ORDERS AT THIS TIME. FOLLOW UP IN AM Addendum: 02/12/20 at 2013 by AFRICA SANCHES RN RN REQUEST OR PEG IN AM BEFORE EXTUBATION
[2020-02-12] MEDS ORDERED: DEXAMETHASONE SOD PHOSPHATE 4 MG/ML 1ML VIAL IVP SCH (20:30)
[2020-02-12] MEDS ORDERED: DEXAMETHASONE SOD PHOSPHATE 4 MG/ML 1ML VIAL ONE (20:31)
[2020-02-13] VITALS (23 sets, daily range): BP systolic 99–144; BP diastolic 60–91
[2020-02-13] MEDS: CEFAZOLIN SODIUM 1 GM VIAL IVP SCH ×3 (00:55→16:36)
[2020-02-13 04:05] LABS: HEMATOCRIT 30.8 % (36-48); LYMPHOCYTES % (AUTO) 8.4 % (21.0-51.0); MEAN CORPUSCULAR HEMOGLOBIN 32.1 pg (27.0-33.0); MEAN CORPUSCULAR HGB CONC 31.8 g/dL (32.0-36.0); MONOCYTES % (AUTO) 6.6 % (3.0-13.0); NEUTROPHILS % (AUTO) 83.3 % (40.0-77.0); NUCLEATED RED BLOOD CELLS 0.5 % (0.0-0.19); PLATELET COUNT (AUTO) 135 K/uL (130-400); RED BLOOD CELL COUNT(AUTO) 3.05 MIL/uL (4.00-5.50); RED CELL DISTRIBUTION WIDTH 16.5 % (11.0-15.5); WHITE BLOOD COUNT (AUTO) 5.9 K/uL (4.8-10.8)
[2020-02-13 04:12] LABS: CREATININE 0.8 mg/dL (0.5-1.5)
[2020-02-13 04:16] LABS: INR 1.01 (0.85-1.15); PARTIAL THROMBOPLASTIN TIME 28.5 SEC (26.3-35.5); PROTHROMBIN TIME 10.9 SEC (9.6-11.6)
[2020-02-13] MEDS: SODIUM CHLORIDE 3% 500 ML IV SCH (06:04)
[2020-02-13] MEDS: SODIUM CHLORIDE 3% FOR INHALATION 4 ML/AMP VIAL.NEB IH SCH ×3 (06:23→22:00)
[2020-02-13] MEDS: ALBUTEROL SULFATE 0.042% 1.25 MG/3 ML INH IH SCH ×3 (06:23→22:00)
--- NOTE | 2020-02-13 08:15 | NUR ---
DR. TARA PACHECO AT BEDSIDE TO ASSESS PATIENT. STATED TO NOTIFY GI AND ANESTHESIA THAT PATIENT IS CURRENTLY STABLE FOR PEG TUBE PLACEMENT. ORDERS TO CONTINUE IV AMIODARONE FOR ANOTHER 24 HRS WERE GIVEN.ALL ORDERS ENTERED INTO SYSTEM.
--- NOTE | 2020-02-13 08:35 | NUR ---
PEG TUBE PLACEMENT DR. WATSON WAS CONTACTED CONCERNING PEG TUBE PLACEMENT. HE WAS NOTIFIED THAT PATIENT'S HEART RATE IS MORE CONTROLLED ON AMIODARONE DRIP. HE STATED TO PLAN FOR PEG TUBE PLACEMENT BY DR. BAKER TODAY AND OBTAIN CONSENT. DR. BAKER AT BEDSIDE AROUND 0830 TO ASSESS PATIENT. HE WAS MADE AWARE OF PLANS FOR PEG TUBE PLACEMENT TODAY. DR. VERGARA AT BEDSIDE WITH DR. BAKER. DISCUSSED PLAN OF PEG TUBE. NO FURTHER ORDERS GIVEN BY DR. BAKER OR DR. VERGARA.
[2020-02-13 08:45] LABS: ABG BASE EXCESS -2.3 mmol/L (-2.0-3.0); ABG HCO3 20.5 mmol/L (21.0-28.0); ABG OXYGEN SATURATION 98.6 % (95.0-99.0); ABG PCO2 31 mmHg (32-45)
[2020-02-13] MEDS ORDERED: LACTULOSE 20 GM/30 ML UDCUP NG PRN (08:45)
--- NOTE | 2020-02-13 08:50 | NUR ---
PEG TUBE SCHEDULED FOR 02/14/[address] OLIVIA RENDON FROM DR. BAKER'S OFFICE CALLED AT THIS TIME TO INFORM THAT PEG TUBE WILL BE SCHEDULED FOR TOMORROW, 02/14/[address] BAKER IS REQUESTING THAT PATIENT REMAINS INTUBATED FOR PROCEDURE TOMORROW. FINAL INSPECTOR WILL BE NOTIFIED. ORESTES CHAMBERLAIN IS AT BEDSIDE AND UPDATED ON PLAN OF CARE FOR TOMORROW'S PEG TUBE PLACEMENT.
[2020-02-13] MEDS: POLYETHYLENE GLYCOL 3350 17 GM POWD.PACK NG SCH (09:22)
[2020-02-13] MEDS: ASCORBIC ACID 500 MG TAB PO SCH (09:22)
[2020-02-13] MEDS: LANSOPRAZOLE 15 MG SOLU TAB PEG SCH (09:22)
[2020-02-13] MEDS: DOCUSATE NA 100MG/10ML UDCUP NG SCH ×2 (09:22→20:11)
[2020-02-13] MEDS: LEVETIRACETAM 500 MG in SODIUM CHLORIDE 0.9% 100 ML IV SCH ×2 (09:22→20:11)
[2020-02-13] MEDS: FERROUS SULFATE 300 MG/5 ML LIQ UDCUP PO SCH ×2 (09:22→20:11)
[2020-02-13] MEDS: ARTIFICAL TEARS SOL 15 ML OU SCH ×2 (09:23→20:12)
--- NOTE | 2020-02-13 10:15 | NUR ---
FAMILY UPDATED PATIENT'S DAUGHTER, TAMMI, CALLED AT THIS TIME. SHE WAS UPDATED ON PLAN OF CARE. SHE IS AWARE THAT PEG TUBE WILL BE PLACED TOMORROW AND PATIENT WILL REMAIN INTUBATED UNTIL THEN. NO FURTHER QUESTIONS AT THIS TIME.
[2020-02-13] MEDS: AMIODARONE HCL 450 MG in DEXTROSE 5%-WATER 250 ML IV SCH (10:22)
--- NOTE | 2020-02-13 10:30 | NUR ---
DR. CHUY VERA AT BEDSIDE TO SEE ND EVALUATE PATIENT. HE HAS BEEN UPDATED ON PLAN OF CARE.
--- NOTE | 2020-02-13 10:40 | NUR ---
DR. RANDALL PEREIRA AT BEDSIDE, UPDATED THAT PEG TUBE WILL BE PLACED TOMORROW MORNING BY . PATIENT WILL REMAIN INTUBATED UNTIL AFTER PROCEDURE.
--- NOTE | 2020-02-13 11:30 | NUR ---
SCHEDULED SCHEDULING AWARE OF PROCEDURE ORDERED FOR TOMORROW MORNING.
[2020-02-13] MEDS: DEXMEDETOMIDINE HCL 400 MCG in SODIUM CHLORIDE 0.9% 100 ML IV SCH (16:48)
[2020-02-13] MEDS: SODIUM CHLORIDE 0.9% 1000ML 1,000 ML IV SCH (20:11)
[2020-02-14] VITALS (19 sets, daily range): BP systolic 100–155; BP diastolic 64–97
--- NOTE | 2020-02-14 | NUR ---
UNABLE TO PLACE PICC. USING ASEPTIC TECHNIQUE, ATTEMPTED BOTH ARMS. BASILIC VEINS ACCESSED ON BOTH ARMS, BUT UNABLE TO ADVANCE TO SVC AFTER MULTIPLE ATTEMPTS AT REPOSITIONING AND MANEUVERING ARMS AND HEAD TILTS. WILL RELAY MESSAGE TO RISK COMPLIANCE ANALYST TO SEE IF ANOTHER PICC NURSE CAN ATTEMPT INSERTION TOMORROW. I WAS ERI TO START A 20GA PERIPHERAL IV TO RIGHT FOREARM SUCCESSFULLY.
[2020-02-14] MEDS: AMIODARONE HCL 450 MG in DEXTROSE 5%-WATER 250 ML IV SCH (00:22)
[2020-02-14] MEDS: DEXMEDETOMIDINE HCL 400 MCG in SODIUM CHLORIDE 0.9% 100 ML IV SCH (00:22)
[2020-02-14] MEDS: CEFAZOLIN SODIUM 1 GM VIAL IVP SCH ×3 (00:31→16:57)
[2020-02-14 04:22] LABS: CREATININE 0.7 mg/dL (0.5-1.5); MAGNESIUM 2.1 mg/dL (1.80-2.40)
[2020-02-14 04:25] LABS: INR 1.02 (0.85-1.15); PARTIAL THROMBOPLASTIN TIME 26.8 SEC (26.3-35.5)
[2020-02-14] MEDS: ALBUTEROL SULFATE 0.042% 1.25 MG/3 ML INH IH SCH ×3 (06:17→22:00)
[2020-02-14] MEDS: SODIUM CHLORIDE 3% FOR INHALATION 4 ML/AMP VIAL.NEB IH SCH ×3 (06:17→23:50)
[2020-02-14] MEDS: DOCUSATE NA 100MG/10ML UDCUP NG SCH ×2 (08:19→21:22)
[2020-02-14] MEDS: POLYETHYLENE GLYCOL 3350 17 GM POWD.PACK NG SCH (08:20)
[2020-02-14] MEDS: ASCORBIC ACID 500 MG TAB PO SCH (08:20)
[2020-02-14] MEDS: LANSOPRAZOLE 15 MG SOLU TAB PEG SCH (08:20)
[2020-02-14] MEDS: FERROUS SULFATE 300 MG/5 ML LIQ UDCUP PO SCH ×2 (08:20→21:18)
[2020-02-14] MEDS: ARTIFICAL TEARS SOL 15 ML OU SCH ×2 (08:21→21:24)
[2020-02-14] MEDS: LEVETIRACETAM 500 MG in SODIUM CHLORIDE 0.9% 100 ML IV SCH ×2 (08:23→21:22)
[2020-02-14] MEDS ORDERED: PROPOFOL 10 MG/ML 20ML VIAL IV ONE (08:39)
--- NOTE | 2020-02-14 08:40 | NUR ---
DR. TARA PACHECO CALLED AT THIS TIME TO BE UPDATED ON PATIENT'S STATUS. HE WAS NOTIFIED OF PATIENT'S HEART RATE IN THE 60s AND THAT THE AMIODARONE DRIP WAS TURNED OFF AT 0500. HE GAVE ORDERS FOR AMIO 200MG PO DAILY AND CARDIZEM 30MG PO EVERY 6 HRS. ORDERS WERE ENTERED INTO THE SYSTEM. HE ALSO WANTED CLARIFICATION FROM DR. PEREIRA TO WHEN WOULD BE THE EARLIEST AND SAFEST TIME TO START PATIENT BACK ON ELIQUIS REGIMEN.
--- NOTE | 2020-02-14 08:50 | NUR ---
PEG TUBE PLACEMENT ENDOSCOPY TEAM AT BEDSIDE. DR. ROSARIO TO PUT IN PEG TUBE.
--- NOTE | 2020-02-14 09:00 | NUR ---
HOLD TREATMENT Pt CONTINUES INTUBATED. ENDBANDER WILL CONTINUE TO FOLLOW Pt TO RESUME SPEECH THERAPY ONCE SHE IS EXTUBATED. Addendum: 02/14/[address] [place] [facility] Amended: Links added.
--- NOTE | 2020-02-14 10:30 | NUR ---
CT SCAN PATIENT TAKEN FOR CT SCAN OF HEAD AT THIS TIME.
--- NOTE | 2020-02-14 11:00 | NUR ---
CPAP TRIALS PATIENT PLACED ON CPAP TRIAL PER DR. MILLAN.
--- NOTE | 2020-02-14 11:10 | NUR ---
DR. RANDALL PEREIRA AT BEDSIDE TO SEE AND ASSESS PATIENT. HE WAS MADE AWARE OF CT SCAN RESULTS AND UPDATED ON PLAN OF CARE. HE STATED HE DOES NOT WANT ELIQUIS TO BE RESTARTED ANYTIME SOON.
[2020-02-14] MEDS ORDERED: AMIODARONE HCL 200 MG TABLET PO ONE ×2 (13:52→14:50)
[2020-02-14] MEDS: DILTIAZEM HCL 60 MG TABLET PO SCH ×2 (13:54→21:23)
[2020-02-14] MEDS: SODIUM CHLORIDE 0.9% 1000ML 1,000 ML IV SCH (13:55)
--- NOTE | 2020-02-14 14:19 | NUR ---
RD UPDATE Pt is s/p PEG placement. Pending weaning trials/pending extubation, per RN. Propofol discontinued. Nutrition needs re-assessed. Recommend Jevity 1.5, initiated at 25mls/hr. Increase rate as tolerated by 5mL every 5 hours to goal rate. Goal rate: 50mls/hr to provide 1200mL, 1800kcal, 77gm protein. Recommended flushes: 175mL every 6 hours. Recommendations provided to RN. RD to follow up.
[2020-02-14] MEDS ORDERED: FUROSEMIDE 10 MG/ML 2ML VIAL ONE (14:39)
[2020-02-14] MEDS ORDERED: FUROSEMIDE 10 MG/ML 2ML VIAL IV SCH (14:45)
--- NOTE | 2020-02-14 14:45 | NUR ---
DR. MILLAN AT BEDSIDE DR. MILLAN AT BEDSIDE AT 1430 TO ASSESS PATIENT. ORDERED 20MG OF LASIX BEFORE EXTUBATION. ORDERS FOR MORNING LABS GIVEN AND ENTERED INTO SYSTEM.
--- NOTE | 2020-02-14 15:44 | NUR ---
at bedside. patient extubated, able to respond appropriately. asked to see patient by [facility]- will follow up with them. pt wearing mittens at this time. Addendum: 02/14/20 at 1545 by BERTHA SANTOS RN CM Amended: Links added.
[2020-02-14] MEDS: DILTIAZEM HCL 5 MG/ML 5 ML VIAL IVP PRN (17:30)
[2020-02-14] MEDS: ACETAMINOPHEN 325 MG TAB PO PRN (21:25)
[2020-02-14] MEDS: DILTIAZEM HCL 125 MG/25 ML 125 MG in SODIUM CHLORIDE 0.9% 100 ML IV SCH (21:33)
[2020-02-14 22:20] LABS: MAGNESIUM 1.8 mg/dL (1.80-2.40); POTASSIUM 3.5 mmol/L (3.5-5.1)
[2020-02-14] MEDS: MAGNESIUM 2GM PREMIX 50ML 50 ML IV SCH (23:30)
[2020-02-14] MEDS ORDERED: ALBUTEROL SULFATE 0.083% 2.5 MG/3 ML INH IH ONE (23:45)
[2020-02-15] VITALS (21 sets, daily range): BP systolic 112–152; BP diastolic 67–90
[2020-02-15] MEDS: CEFAZOLIN SODIUM 1 GM VIAL IVP SCH ×3 (00:03→16:55)
[2020-02-15] MEDS: DILTIAZEM HCL 60 MG TABLET PO SCH ×2 (02:46→08:00)
[2020-02-15] MEDS: POTASSIUM CHLORIDE 20MEQ/100ML 100 ML IV PRN ×2 (02:47→03:06)
[2020-02-15 06:09] LABS: HEMATOCRIT 30.1 % (36-48); MEAN CORPUSCULAR HEMOGLOBIN 31.7 pg (27.0-33.0); MEAN CORPUSCULAR HGB CONC 30.9 g/dL (32.0-36.0); MEAN CORPUSCULAR VOLUME 102.7 fL (79-99); NUCLEATED RED BLOOD CELLS 0.2 % (0.0-0.19); RED BLOOD CELL COUNT(AUTO) 2.93 MIL/uL (4.00-5.50); RED CELL DISTRIBUTION WIDTH 16.8 % (11.0-15.5)
[2020-02-15 06:25] LABS: ALBUMIN 2.2 g/dL (3.5-5.0); BILIRUBIN,TOTAL 0.5 mg/dL (0.2-1.0); CREATININE 0.7 mg/dL (0.5-1.5); POTASSIUM 4.4 mmol/L (3.5-5.1); TOTAL PROTEIN, SERUM 6.5 g/dL (6.0-8.3)
[2020-02-15] MEDS: ALBUTEROL SULFATE 0.042% 1.25 MG/3 ML INH IH SCH ×3 (06:45→22:20)
[2020-02-15] MEDS: SODIUM CHLORIDE 3% FOR INHALATION 4 ML/AMP VIAL.NEB IH SCH ×3 (06:45→22:20)
[2020-02-15] MEDS: POLYETHYLENE GLYCOL 3350 17 GM POWD.PACK NG SCH (08:04)
[2020-02-15] MEDS: AMIODARONE HCL 200 MG TABLET PO SCH (08:05)
[2020-02-15] MEDS: DILTIAZEM HCL 125 MG/25 ML 125 MG in SODIUM CHLORIDE 0.9% 100 ML IV SCH (08:09)
[2020-02-15] MEDS: LEVETIRACETAM 500 MG in SODIUM CHLORIDE 0.9% 100 ML IV SCH ×2 (08:09→20:14)
[2020-02-15] MEDS: DOCUSATE NA 100MG/10ML UDCUP NG SCH ×2 (08:11→20:14)
[2020-02-15] MEDS: LANSOPRAZOLE 15 MG SOLU TAB PEG SCH (08:20)
[2020-02-15] MEDS: FERROUS SULFATE 300 MG/5 ML LIQ UDCUP PO SCH ×2 (08:23→20:14)
[2020-02-15] MEDS: ASCORBIC ACID 500 MG TAB PO SCH (08:23)
[2020-02-15] MEDS ORDERED: PHARMACY COMMUNICATION MISC SCH (08:30)
[2020-02-15] MEDS: ARTIFICAL TEARS SOL 15 ML OU SCH ×2 (09:00→20:14)
--- NOTE | 2020-02-15 09:00 | NUR ---
SWALLOWING TREATMENT COMPLETED S: Pt COOPERATIVE WITH ALL THERAPEUTIC SWALLOWING GOALS. Pt CURRENTLY ON NC RECEIVING 3LO2. Pt STABLE AND IN GOOD RESPIRATORY STATUS TO PROCEED WITH THERAPY. 0: Pt CURRENTLY TARGETING SWALLOWING GOALS, RESULTS ARE FOLLOWS: 1. Pt PARTICIPATED IN LARYNGEAL ELEVATION/EXCURSION EXERCISES WITH 90% ACCURACY GIVEN EXTRA TIME TO BREATHE IN BETWEEN TRIALS. 2. Pt PARTICIPATED IN TONGUE BASE RETRACTION EXERCISES WITH 80% ACCURACY. 3. SKILLED EDUCATION Pt/FAMILY/STAFF: COMPLETED. A: PLASTIC INSTALLER EDUCATED Pt OF RISKS AND CONSEQUENCES OF ASPIRATION. Pt GESTURED UNDERSTANDING AND COOPERATION WITH SWALLOWING GOALS. P: RECOMMEND THE CONTINUATION OF SPEECH THERAPY DURING LENGTH OF STAY IN THE HOSPITAL TO CONTINUE ADDRESSING SWALLOWING GOALS. PLASTIC INSTALLER COORDINATED CARE AND RECOMMENDATIONS WITH NURSE PRIEST. Addendum: 02/15/[address] [place] [facility] Amended: Links added.
[2020-02-15] MEDS ORDERED: FUROSEMIDE 10 MG/ML 2ML VIAL IV SCH (12:00)
[2020-02-15] MEDS: SODIUM CHLORIDE 0.9% 1000ML 1,000 ML IV SCH (12:00)
--- NOTE | 2020-02-15 12:01 | NUR ---
ADVISED THAT [facility] WILL NEED NEW REFERRAL WHEN PATIENT STABLE THEY WILL TAKE HER OFF THE REFERRAL LIST AT THIS TIME - NO NEEDS FOR UPDATES UNTIL PATIENT MORE READY FOR DISCHARGE Addendum: 02/15/20 at 1202 by BERTHA SANTOS RN CM Amended: Links added.
--- NOTE | 2020-02-15 15:00 | NUR ---
PT WAS ASSESSED BY DR. MILLAN AND ORDERS NOTED. PT HAD BEEN GIVEN SOME APPLESAUCE BY DR. MILLAN TO ASSESS HER SWALLOWING, AND APPARENTLY PATIENT SWALLOWED THE APPLESAUCE GIVEN TO PATIENT BY DR. MILLAN. SOON AFTER THE PATIENT STARTED COUGHING AND WHAT WAS SUCTIONED HAD SOME APPLESAUCE. NOTIFIED DR. MILLAN AND WILL NOT CONTINUE ANY FEEDING BY MOUTH.
[2020-02-15] MEDS: METOPROLOL TARTRATE 25 MG TAB PEG SCH ×3 (16:55→20:14)
[2020-02-16] VITALS (16 sets, daily range): BP systolic 112–141; BP diastolic 65–100
[2020-02-16] MEDS: SODIUM CHLORIDE 0.9% 1000ML 1,000 ML IV SCH (00:33)
[2020-02-16] MEDS: CEFAZOLIN SODIUM 1 GM VIAL IVP SCH ×2 (00:55→08:14)
[2020-02-16] MEDS: ACETAMINOPHEN 325 MG TAB PO PRN (03:52)
[2020-02-16] MEDS: ALBUTEROL SULFATE 0.042% 1.25 MG/3 ML INH IH SCH ×3 (05:17→21:32)
[2020-02-16 05:58] LABS: MAGNESIUM 1.9 mg/dL (1.80-2.40)
[2020-02-16] MEDS: SODIUM CHLORIDE 3% FOR INHALATION 4 ML/AMP VIAL.NEB IH SCH ×3 (06:00→21:32)
--- NOTE | 2020-02-16 08:00 | NUR ---
SPEECH THERAPIST WAS ADVISED OF THE APPLESAUCE THAT HAD BEEN GIVEN TO PATIENT THE DAY BEFORE AND THE COUGHING THAT HAD OCCURRED AFTERWARDS.
[2020-02-16] MEDS: AMIODARONE HCL 200 MG TABLET PO SCH (08:12)
[2020-02-16] MEDS: METOPROLOL TARTRATE 25 MG TAB PEG SCH ×2 (08:12→12:34)
[2020-02-16] MEDS: LEVETIRACETAM 500 MG in SODIUM CHLORIDE 0.9% 100 ML IV SCH (08:14)
[2020-02-16] MEDS: DOCUSATE NA 100MG/10ML UDCUP NG SCH ×2 (08:37→20:49)
--- NOTE | 2020-02-16 08:50 | NUR ---
SWALLOWING TREATMENT COMPLETED S: Pt COOPERATIVE WITH ALL THERAPEUTIC SWALLOWING GOALS. Pt CURRENTLY ON NC AND PEG FOR FEEDINGS. Pt STABLE AND WITH GOOD RESPIRATORY STATUS TO PROCEED WITH THERAPY. O: Pt CURRENTLY TARGETING SWALLOWING GOALS, RESULTS ARE FOLLOWS: 1. Pt PARTICIPATED IN LARYNGEAL ELEVATION/EXCURSION EXERCISES WITH 80% ACCURACY. 2. Pt PARTICIPATED IN TONGUE BASE RETRACTION EXERCISES WITH 90% ACCURACY. 3. SKILLED EDUCATION Pt/FAMILY/STAFF: COMPLETED. A: SODA DIALYZER EDUCATED Pt OF RISKS AND CONSEQUENCES OF ASPIRATION. Pt WAS ALSO REMINDED THAT SHE ASPIRATES WITHOUT ANY S/S OF ASPIRATION (SILENT ASPIRATION). Pt GESTURED UNDERSTANDING AND COOPERATION WITH SWALLOWING GOALS. P: RECOMMEND THE CONTINUATION OF SPEECH THERAPY DURING LENGTH OF STAY IN THE HOSPITAL TO CONTINUE ADDRESSING SWALLOWING GOALS. SODA DIALYZER COORDINATED CARE AND RECOMMENDATIONS WITH NURSE PARVEEN ZARAGOZA. PER NURSE, Pt WAS GIVEN APPLESAUCE AND IT APPEARED LATER WHEN Pt WAS SUCTIONED. Pt CONTINUES AT HIGH RISK OF ASPIRATION. Addendum: 02/16/[address] [place] [facility] Amended: Links added.
[2020-02-16] MEDS: ARTIFICAL TEARS SOL 15 ML OU SCH ×2 (09:00→20:50)
[2020-02-16] MEDS: LANSOPRAZOLE 15 MG SOLU TAB PEG SCH (09:00)
[2020-02-16] MEDS: FERROUS SULFATE 300 MG/5 ML LIQ UDCUP PO SCH ×2 (09:00→20:50)
[2020-02-16] MEDS: ASCORBIC ACID 500 MG TAB PO SCH (09:00)
[2020-02-16] MEDS ORDERED: PHARMACY COMMUNICATION MISC SCH (09:15)
--- NOTE | 2020-02-16 12:27 | NUR ---
[facility] referral cancelled- disposition uncertain at this time. will need re-referral when stable Addendum: 02/16/20 at 1228 by BERTHA SANTOS RN CM Amended: Links added.
[2020-02-16] MEDS: METOPROLOL TARTRATE 25 MG TAB PO SCH ×3 (12:32→20:49)
--- NOTE | 2020-02-16 15:01 | NUR ---
RD FOLLOW UP Pt tolerating Tube Feeding, Jevity 1.5 @40mls/hr. Pt extubated 02/14/20. S/p ST eval; Pt remains with high aspiration risk. Noted Vitamin B12 3131, supplementation discontinued. BNP 460. Recommend continue Tube Feeding, advance to goal (50mL/hr) as tolerated. RD to continue to monitor. Please notify as nutrition concerns arise. Thank you. Addendum: 02/16/20 at [address] RD Amended: Links added.
--- NOTE | 2020-02-16 20:00 | NUR ---
PT TRANSFERRED TO BSC X 2 ASSIST, WEAK LEGS , BM X 1 SOFT MOD AMOUNT,COMPLETE BATH GIVEN, RETURNED TO BED.
[2020-02-16] MEDS: LEVETIRACETAM 100 MG/ML 5 ML UDCUP PO SCH (20:50)
--- NOTE | 2020-02-16 21:30 | NUR ---
PATIENT TALKING ON THE PHONE WITH DAUGHTER AND SISTER.
[2020-02-17] VITALS (20 sets, daily range): BP systolic 106–145; BP diastolic 65–94
[2020-02-17] MEDS: METOPROLOL TARTRATE 25 MG TAB PO SCH ×3 (03:39→21:49)
[2020-02-17 06:14] LABS: BASOPHILS % (AUTO) 0.3 % (0.0-5.0); EOSINOPHILS % (AUTO) 1.5 % (0.0-8.0); HEMATOCRIT 29.6 % (36-48); LYMPHOCYTES % (AUTO) 17.6 % (21.0-51.0); MEAN CORPUSCULAR HEMOGLOBIN 31.7 pg (27.0-33.0); MEAN CORPUSCULAR HGB CONC 31.1 g/dL (32.0-36.0); MEAN CORPUSCULAR VOLUME 102.1 fL (79-99); MONOCYTES % (AUTO) 14.8 % (3.0-13.0); NEUTROPHILS % (AUTO) 62.5 % (40.0-77.0); NUCLEATED RED BLOOD CELLS 0.5 % (0.0-0.19); PLATELET COUNT (AUTO) 165 K/uL (130-400); RED CELL DISTRIBUTION WIDTH 15.9 % (11.0-15.5); WHITE BLOOD COUNT (AUTO) 5.8 K/uL (4.8-10.8)
[2020-02-17 06:24] LABS: CREATININE 0.6 mg/dL (0.5-1.5); MAGNESIUM 1.9 mg/dL (1.80-2.40); POTASSIUM 3.8 mmol/L (3.5-5.1)
[2020-02-17] MEDS: ALBUTEROL SULFATE 0.042% 1.25 MG/3 ML INH IH SCH ×3 (06:24→22:09)
[2020-02-17] MEDS: SODIUM CHLORIDE 3% FOR INHALATION 4 ML/AMP VIAL.NEB IH SCH ×3 (06:25→22:09)
[2020-02-17] MEDS: MAGNESIUM 2GM PREMIX 50ML 50 ML IV SCH (07:09)
[2020-02-17] MEDS: DOCUSATE NA 100MG/10ML UDCUP NG SCH ×2 (09:04→21:46)
[2020-02-17] MEDS: LEVETIRACETAM 100 MG/ML 5 ML UDCUP PO SCH ×2 (09:04→21:46)
[2020-02-17] MEDS: FERROUS SULFATE 300 MG/5 ML LIQ UDCUP PO SCH ×2 (09:04→21:46)
[2020-02-17] MEDS: LANSOPRAZOLE 15 MG SOLU TAB PEG SCH (09:05)
[2020-02-17] MEDS: AMIODARONE HCL 200 MG TABLET PO SCH (09:05)
[2020-02-17] MEDS: ASCORBIC ACID 500 MG TAB PO SCH (09:05)
--- NOTE | 2020-02-17 13:20 | NUR ---
PT WAS ABLE TO TALK TO DAUGHTER AND THEN WANTED TO GO TO BED. PT HAS BEEN LISTENING TO MUSIC FROM HER BED AND WILL TAKE SHORT NAPS.
--- NOTE | 2020-02-17 20:30 | NUR ---
ASSESSMENT PT RESTING QUIETLY IN BED. DENIES ANY PAIN, DISCOMFORT OR S.O.B. JEVITY INFUSING WITHOUT DIFFICULTY VIA PEG. PT AAOX2, FOLLOWS COMMANDS, PLEASANT AND COOPERATIVE. ASSESSMENT COMPLETED, SEE FLOW SHEET.
[2020-02-17] MEDS: ARTIFICAL TEARS SOL 15 ML OU SCH ×2 (21:00→22:13)
[2020-02-18] VITALS (25 sets, daily range): BP systolic 104–134; BP diastolic 61–97
[2020-02-18 03:46] LABS: BASOPHILS % (AUTO) 0.4 % (0.0-5.0); HEMATOCRIT 30.8 % (36-48); MEAN CORPUSCULAR HEMOGLOBIN 30.8 pg (27.0-33.0); MEAN CORPUSCULAR HGB CONC 30.5 g/dL (32.0-36.0); MONOCYTES % (AUTO) 15.5 % (3.0-13.0); NEUTROPHILS % (AUTO) 64.8 % (40.0-77.0); NUCLEATED RED BLOOD CELLS 0.4 % (0.0-0.19); PLATELET COUNT (AUTO) 172 K/uL (130-400); RED BLOOD CELL COUNT(AUTO) 3.05 MIL/uL (4.00-5.50); RED CELL DISTRIBUTION WIDTH 16.2 % (11.0-15.5); WHITE BLOOD COUNT (AUTO) 4.5 K/uL (4.8-10.8)
[2020-02-18] MEDS: METOPROLOL TARTRATE 25 MG TAB PO SCH ×4 (03:49→20:48)
[2020-02-18 04:00] LABS: CREATININE 0.7 mg/dL (0.5-1.5); POTASSIUM 3.6 mmol/L (3.5-5.1)
[2020-02-18] MEDS: SODIUM CHLORIDE 3% FOR INHALATION 4 ML/AMP VIAL.NEB IH SCH ×3 (06:28→22:32)
[2020-02-18] MEDS: ALBUTEROL SULFATE 0.042% 1.25 MG/3 ML INH IH SCH ×3 (06:28→22:32)
--- NOTE | 2020-02-18 06:50 | NUR ---
SHIFT REPORT Assumed care of pt. Pt sleeping soundly at present. No evidence of distress. Respiratory effort is non-labored on NCO2. Afib on tele.
--- NOTE | 2020-02-18 07:40 | NUR ---
GASTROINTESTINAL Abd slightly distended and pt reports feeling "bloated". States that she does not feel the urge to have a BM. Does not believe she is passing gas. Denies nausea or abd pain but states her abd "doesn't feel right." 125ml fluid residual obtained. TF on hold. Addendum: 02/18/20 at 1735 by NOA TUCKER RN RN Amended: Links added.
[2020-02-18] MEDS: ARTIFICAL TEARS SOL 15 ML OU SCH ×2 (09:00→20:59)
[2020-02-18] MEDS: AMIODARONE HCL 200 MG TABLET PO SCH ×3 (09:00→20:48)
[2020-02-18] MEDS: ASCORBIC ACID 500 MG TAB PO SCH (09:00)
[2020-02-18] MEDS ORDERED: AMIODARONE HCL 200 MG TABLET PO ONE (09:07)
[2020-02-18] MEDS: FERROUS SULFATE 300 MG/5 ML LIQ UDCUP PO SCH ×2 (09:27→20:47)
[2020-02-18] MEDS: LANSOPRAZOLE 15 MG SOLU TAB PEG SCH (09:27)
[2020-02-18] MEDS: DOCUSATE NA 100MG/10ML UDCUP NG SCH ×2 (09:28→20:54)
[2020-02-18] MEDS: DILTIAZEM HCL 5 MG/ML 5 ML VIAL IVP PRN ×2 (09:28→20:10)
[2020-02-18] MEDS: LEVETIRACETAM 100 MG/ML 5 ML UDCUP PO SCH ×2 (09:28→20:48)
--- NOTE | 2020-02-18 09:43 | NUR ---
FAMILY UPDATE Spoke to pt's daughter, Lainey, by phone - briefly updated. Pt able to speak to both her daughter and her sister.
--- NOTE | 2020-02-18 11:30 | NUR ---
ASSESSMENT No acute changes in overall assessment. Pt remains pleasant. Denies acute discomfort. Abd "bloating" unchanged per pt. Abd remains slightly distended with diminished bowel sounds. Geena care rendered - pt incontinent of urine.
--- NOTE | 2020-02-18 12:02 | NUR ---
SAW PT AT BEDSIDE- MORE COHERENT TODAY, Q'S RE STR ADIVSED PATIENT THAT A NEW REFERRAL WILL HAVE TO BE PLACED FOR HER WHEN SHE IS OUT OF ICU. DISCHARGE DISPOSITION WILL STILL BE TO [facility]. Addendum: 02/18/20 at 1204 by BERTHA SANTOS RN Amended: Links added.
[2020-02-18] MEDS: ACETAMINOPHEN 325 MG TAB PO PRN ×2 (12:28→18:06)
--- NOTE | 2020-02-18 14:00 | NUR ---
STATUS Sleeping soundly. Pt is in no acute distress. Call light within reach.
--- NOTE | 2020-02-18 16:30 | NUR ---
ASSESSMENT No acute changes in overall assessment. TF resumed. Abd assessment unchanged - pt denies flatus. No reported nausea. 0ml residual. Remains on room air. Fine crackles to LLL on auscultation of breath sounds. Decreased cough. No complaints voiced by pt. Needed items within reach. Repositioned for comfort. Geena care rendered - incontinent of large amount of urine.
--- NOTE | 2020-02-18 18:33 | NUR ---
STATUS Resting quietly. Medicated for c/o abd discomfort, primarily to PEG site. PEG site assessed - no untoward findings. Abd remains slightly distended. Pt is in no acute distress. Needed items within reach.
[2020-02-19] VITALS (13 sets, daily range): BP systolic 109–146; BP diastolic 67–99
[2020-02-19] MEDS: ACETAMINOPHEN 325 MG TAB PO PRN ×4 (00:52→18:43)
[2020-02-19] MEDS: METOPROLOL TARTRATE 25 MG TAB PO SCH ×4 (02:26→21:18)
[2020-02-19 04:25] LABS: ALBUMIN 2.3 g/dL (3.5-5.0); ASPARTATE AMINOTRANSFERASE 33 U/L (10-37); BILIRUBIN,TOTAL 0.7 mg/dL (0.2-1.0); CARBON DIOXIDE 29 mmol/L (21-32); CHLORIDE 102 mmol/L (101-111); CREATININE 0.6 mg/dL (0.5-1.5); GLOMERULAR FILTR. RATE CALC 102 mL/min (>60); GLUCOSE,RANDOM 104 mg/dL (70-105); POTASSIUM 4.3 mmol/L (3.5-5.1); SODIUM SERUM 138 mmol/L (136-145); TOTAL PROTEIN, SERUM 6.4 g/dL (6.0-8.3); UREA NITROGEN, BLOOD 12 mg/dL (7-18)
[2020-02-19 04:36] LABS: ALANINE AMINOTRANSFERASE < 6 U/L (12-78)
[2020-02-19 05:04] LABS: BASOPHILS % (AUTO) 0.2 % (0.0-5.0); EOSINOPHILS % (AUTO) 0.5 % (0.0-8.0); MEAN CORPUSCULAR HEMOGLOBIN 31.3 pg (27.0-33.0); MEAN CORPUSCULAR HGB CONC 30.9 g/dL (32.0-36.0); MEAN CORPUSCULAR VOLUME 101.3 fL (79-99); NEUTROPHILS % (AUTO) 67.4 % (40.0-77.0); NUCLEATED RED BLOOD CELLS 0.3 % (0.0-0.19); PLATELET COUNT (AUTO) 186 K/uL (130-400); RED BLOOD CELL COUNT(AUTO) 3.16 MIL/uL (4.00-5.50); RED CELL DISTRIBUTION WIDTH 15.9 % (11.0-15.5); WHITE BLOOD COUNT (AUTO) 5.9 K/uL (4.8-10.8)
[2020-02-19] MEDS: ALBUTEROL SULFATE 0.042% 1.25 MG/3 ML INH IH SCH (06:54)
[2020-02-19] MEDS: ARTIFICAL TEARS SOL 15 ML OU SCH ×2 (08:16→21:18)
[2020-02-19] MEDS: LANSOPRAZOLE 15 MG SOLU TAB PEG SCH (08:26)
[2020-02-19] MEDS: LEVETIRACETAM 100 MG/ML 5 ML UDCUP PO SCH ×2 (08:27→21:15)
[2020-02-19] MEDS: FERROUS SULFATE 300 MG/5 ML LIQ UDCUP PO SCH ×2 (08:27→21:15)
[2020-02-19] MEDS: AMIODARONE HCL 200 MG TABLET PO SCH ×2 (08:28→21:15)
[2020-02-19] MEDS: DOCUSATE NA 100MG/10ML UDCUP NG SCH ×2 (08:52→21:15)
[2020-02-19] MEDS: ASCORBIC ACID 500 MG TAB PO SCH (08:54)
--- NOTE | 2020-02-19 09:25 | NUR ---
SWALLOWING TREATMENT COMPLETED S: Pt COOPERATIVE WITH ALL THERAPEUTIC SWALLOWING GOALS. Pt CURRENTLY ON PRN 2LO2 AND NPO/PEG FEEDING. Pt STABLE AND WITH GOOD RESPIRATORY STATUS TO PROCEED WITH THERAPY. 0: Pt CURRENTLY TARGETING SWALLOWING GOALS, RESULTS ARE FOLLOWS: 1. Pt PARTICIPATED IN LARYNGEAL ELEVATION/EXCURSION EXERCISES WITH 90% ACCURACY. 2. . Pt PARTICIPATED IN TONGUE BASE RETRACTION EXERCISES WITH 100% ACCURACY. 3. Pt PARTICIPATED IN ORAL MOTOR EXERCISES WITH 100% ACCURACY. 4. SKILLED EDUCATION Pt/FAMILY/STAFF: COMPLETED A: DIRECTOR OF LITIGATION EDUCATED Pt OF RISKS AND CONSEQUENCES OF ASPIRATION. Pt VERBALIZED UNDERSTANDING AND COOPERATION WITH SWALLOWING GOALS. P: DIRECTOR OF LITIGATION WILL CONTINUE TO FOLLOW Pt DURING THE LENGTH OF STAY IN THE HOSPITAL TO CONTINUE ADDRESSING SWALLOWING GOALS. CONTINUE NPO WITH PEG FEEDING. DIRECTOR OF LITIGATION COORDINATED WITH NURSE. Addendum: 02/19/[address] [place] [facility] Amended: Links added.
[2020-02-19] MEDS: DILTIAZEM HCL 60 MG TABLET GT SCH ×2 (09:31→21:15)
--- NOTE | 2020-02-19 11:08 | NUR ---
TRANSFERRED TO 422 WITHOUT INCIDENT. SBAR REPORT GIVEN. PT IS AWAKE, ALERT ORIENTED. DAUGHTER CALLED TO LINING MECHANIC BELONGINGS. PT WILL KEEP CELL PHONE WITH HER
--- NOTE | 2020-02-19 11:10 | NUR ---
PT RECEIVED FROM ICU CARIDAD RN WAS ICU NURSE, PT ORIENTED X 3. ABLE TO MOVE ALL EXTREMITIES. UPPER AND LOWER EXTREMITIES NOTED TO BE VERY COLD. FINGER TIPS ON LEFT HAND PURPLE. PT ABLE TO FOLLOW COMMANDS AND VOICE CONCERNS. SITTING IN RECLINER. CALLLIGHT WITHIN REACH. [facility]
--- NOTE | 2020-02-19 13:26 | NUR ---
RD FOLLOW UP RD notification for Bolus Tube Feeding recommendations received. Recommend Jevity 1.5, 5 cans per day (6AM-1 can, 10AM-1can, 2PM-1can, 6PM-1can, 10PM-1can) Provides: 1775 kcal, 76gm Protein, 900mL free H2O Discharge flushes Recommend: 90mLs before and after each feeding. *Recommendations placed with Pt chart. RD to continue to monitor. Please notify as additional nutrition concerns arise. Thank you. Addendum: 02/19/20 at [address] RD Amended: Links added.
[2020-02-20] VITALS (7 sets, daily range): BP systolic 101–119; BP diastolic 61–79
[2020-02-20] MEDS: METOPROLOL TARTRATE 25 MG TAB PO SCH ×4 (03:03→22:01)
[2020-02-20 04:12] LABS: BASOPHILS % (AUTO) 0.4 % (0.0-5.0); EOSINOPHILS % (AUTO) 0.4 % (0.0-8.0); HEMATOCRIT 31.8 % (36-48); LYMPHOCYTES % (AUTO) 12.1 % (21.0-51.0); MEAN CORPUSCULAR HEMOGLOBIN 31.1 pg (27.0-33.0); MEAN CORPUSCULAR HGB CONC 31.1 g/dL (32.0-36.0); MONOCYTES % (AUTO) 22.4 % (3.0-13.0); NEUTROPHILS % (AUTO) 62.3 % (40.0-77.0); NUCLEATED RED BLOOD CELLS 0.8 % (0.0-0.19); PLATELET COUNT (AUTO) 185 K/uL (130-400); RED BLOOD CELL COUNT(AUTO) 3.18 MIL/uL (4.00-5.50); RED CELL DISTRIBUTION WIDTH 16.1 % (11.0-15.5); WHITE BLOOD COUNT (AUTO) 7.4 K/uL (4.8-10.8)
[2020-02-20 04:35] LABS: ALBUMIN 2.4 g/dL (3.5-5.0); BILIRUBIN,TOTAL 0.6 mg/dL (0.2-1.0); CREATININE 0.7 mg/dL (0.5-1.5); POTASSIUM 3.8 mmol/L (3.5-5.1); TOTAL PROTEIN, SERUM 6.9 g/dL (6.0-8.3)
[2020-02-20] MEDS: DILTIAZEM HCL 60 MG TABLET GT SCH ×2 (09:25→21:26)
[2020-02-20] MEDS: ASCORBIC ACID 500 MG TAB PO SCH (09:25)
[2020-02-20] MEDS: AMIODARONE HCL 200 MG TABLET PO SCH ×2 (09:25→21:26)
[2020-02-20] MEDS: ARTIFICAL TEARS SOL 15 ML OU SCH ×2 (09:46→22:02)
--- NOTE | 2020-02-20 09:50 | NUR ---
SWALLOWING TREATMENT COMPLETED S: Pt IN ORION CHAIR RECEIVING 2LO2 AND PEG TUBE FEEDINGS. Pt COOPERATIVE WITH ALL THERAPEUTIC SWALLOWING GOALS. Pt STABLE TO PROCEED WITH THERAPY. 0: Pt CURRENTLY TARGETING SWALLOWING GOALS, RESULTS ARE FOLLOWS: 1. Pt PARTICIPATED IN LARYNGEAL ELEVATION/EXCURSION EXERCISES WITH 80% ACCURACY. 2. Pt PARTICIPATED IN TONGUE BASE RETRACTION EXERCISES WITH 100% ACCURACY. 3. Pt PARTICIPATED IN ORAL MOTOR EXERCISES WITH 100% ACCURACY. 4. Pt PARTICIPATED IN THERAPEUTIC TRIALS OF ICE CHIPS WITH NO S/S OF ASPIRATION. 5. SKILLED EDUCATION Pt/FAMILY/STAFF: COMPLETED A: VIDEO MACHINES MECHANIC EDUCATED Pt OF RISKS AND CONSEQUENCES OF ASPIRATION. Pt VERBALIZED UNDERSTANDING AND COOPERATION WITH SWALLOWING GOALS. VIDEO MACHINES MECHANIC EXPLAINED THAT SHE MAY NOT EXHIBIT S/S OF ASPIRATION DURING SILENT ASPIRATION. P: VIDEO MACHINES MECHANIC COORDINATED WITH NURSE MORELAND. VIDEO MACHINES MECHANIC WILL CONTINUE TO FOLLOW Pt DURING THE LENGTH OF STAY IN THE HOSPITAL TO CONTINUE ADDRESSING SWALLOWING GOALS. Addendum: 02/20/[address] [place] [facility] Amended: Links added.
--- NOTE | 2020-02-20 10:30 | NUR ---
DR. PEREIRA IN TO SEE PATIENT. SERVANDO TO HEAD REMOVED BY DR. PEREIRA'S NURSE LILA. DR. PEREIRA STATED PATIENT IS CLEARED TO GO TO REHAB.
[2020-02-20] MEDS: FERROUS SULFATE 300 MG/5 ML LIQ UDCUP PO SCH ×2 (10:40→21:25)
[2020-02-20] MEDS: DOCUSATE NA 100MG/10ML UDCUP NG SCH ×2 (10:40→21:25)
[2020-02-20] MEDS: LANSOPRAZOLE 15 MG SOLU TAB PEG SCH (10:40)
[2020-02-20] MEDS: LEVETIRACETAM 100 MG/ML 5 ML UDCUP PO SCH ×2 (10:40→21:59)
--- NOTE | 2020-02-20 16:20 | NUR ---
RE- SENT REFERRAL TO [facility] YESTERDAY, ACCEPTED PATIENT TODAY FOR ADMIT TOMORROW Addendum: 02/20/20 at 1621 by BERTHA SANTOS RN CM Amended: Links added.
[2020-02-21] MEDS: METOPROLOL TARTRATE 25 MG TAB PO SCH ×3 (03:57→15:30)
[2020-02-21 03:58] VITALS: BP 107/77
[2020-02-21 05:14] LABS: BASOPHILS % (AUTO) 0.4 % (0.0-5.0); EOSINOPHILS % (AUTO) 1.6 % (0.0-8.0); HEMATOCRIT 31.4 % (36-48); LYMPHOCYTES % (AUTO) 12.5 % (21.0-51.0); MEAN CORPUSCULAR HGB CONC 30.6 g/dL (32.0-36.0); MEAN CORPUSCULAR VOLUME 101.3 fL (79-99); PLATELET COUNT (AUTO) 183 K/uL (130-400); RED CELL DISTRIBUTION WIDTH 16.2 % (11.0-15.5); WHITE BLOOD COUNT (AUTO) 5.1 K/uL (4.8-10.8)
[2020-02-21 05:49] LABS: ALBUMIN 2.3 g/dL (3.5-5.0); BILIRUBIN,TOTAL 0.4 mg/dL (0.2-1.0); CREATININE 0.6 mg/dL (0.5-1.5); POTASSIUM 3.6 mmol/L (3.5-5.1); TOTAL PROTEIN, SERUM 6.6 g/dL (6.0-8.3)
--- NOTE | 2020-02-21 06:00 | NUR ---
ROUNDS PATIENT AWAKE AND ALERT. NO COMPLAINTS OF PAIN VOICED AT THIS TIME. VITALS STABLE. AFEBRILE. RESP EVEN AND UNLABORED. NO SOB NOTED. TOLERATING PEG TUBE FEEDING WELL. NO NAUSEA OR VOMITING NOTED. FOLLOWS COMMANDS WELL. TOTAL CARE RENDERED Q2H AND PRN. REPOSITIONED FOR COMFORT. HOB ELEVATED. CALL LIGHT WITHIN REACH. WILL CONTINUE TO BE OB SERVED. Addendum: 02/21/20 at 7734 by JD WATSON RN RN Amended: Links added.
[2020-02-21 07:30] VITALS: BP 94/63
[2020-02-21] MEDS: DILTIAZEM HCL 60 MG TABLET GT SCH (09:00)
[2020-02-21] MEDS: DOCUSATE NA 100MG/10ML UDCUP NG SCH (09:40)
[2020-02-21] MEDS: LEVETIRACETAM 100 MG/ML 5 ML UDCUP PO SCH (09:40)
[2020-02-21] MEDS: LANSOPRAZOLE 15 MG SOLU TAB PEG SCH (09:41)
[2020-02-21] MEDS: ASCORBIC ACID 500 MG TAB PO SCH (09:41)
[2020-02-21] MEDS: FERROUS SULFATE 300 MG/5 ML LIQ UDCUP PO SCH (09:41)
[2020-02-21] MEDS: ARTIFICAL TEARS SOL 15 ML OU SCH (09:42)
[2020-02-21 09:50] VITALS: BP 108/75
[2020-02-21] MEDS: AMIODARONE HCL 200 MG TABLET PO SCH (09:54)
[2020-02-21 11:00] VITALS: BP 113/87
--- NOTE | 2020-02-21 12:40 | NUR ---
TREATMENT ATTEMPTED Pt LETHARGIC AND TIRED UPON ARRIVAL. Pt REQUESTED SPEECH THERAPY SESSION AT ANOTHER TIME. DIRECTOR OF INFECTION PREVENTION EDUCATED PATIENT AND ANSWERED ALL QUESTIONS. DIRECTOR OF INFECTION PREVENTION WILL CONTINUE TO FOLLOW Pt TO ADDRESS SWALLOWING GOALS TOMORROW. DIRECTOR OF INFECTION PREVENTION COORDINATED WITH NURSE LARES. Addendum: 02/21/[address] [facility] Amended: Links added.
--- NOTE | 2020-02-21 13:42 | NUR ---
DISCHARGE TODAY TO [facility]- JUST WAITING FOR BED TO BE FREED UP, TO ROUND- SPOKE TO DAUGHTER AT LENGTH AGAIN TODAY- REQUESTING DISCHARGE INSTRUCTION GIVEN TO HER WHEN PT READY FOR DISCHARGE TYRONE PRIMARY RN NOTIFIED TO CALL DAUGHTER WHEN DISCHARGE IN PROCESS MOT SIGNED BY DR. EASON, COVID FORM SIGNED, MED REC PENDING
[2020-02-21 16:00] VITALS: BP 132/101
[2020-02-21] MEDS: ACETAMINOPHEN 325 MG TAB PO PRN (18:28)
[2020-02-21 19:38] VITALS: BP 121/59
== END 2020-02-21 20:00 | DRG 25 ==
LOC: EDH 11:48 → EDHIP 13:07 → DAHIP 15:03 → 4BH 02-10 14:37 → DAHIP 02-11 12:43 → 4DH 02-19 10:23 → 4CH 02-19 23:39
PROVIDERS: ADMIT Internal Medicine; ATTEND Internal Medicine
PROC: 5A1945Z Respiratory Ventilation, 24-96 Consecutive Hours (ICD-10-PCS; 2020-02-02)
PROC: 0BH17EZ Insertion of Endotracheal Airway into Trachea, Via Natural or Artificial Opening (ICD-10-PCS; 2020-02-02)
PROC: 0BC98ZZ Extirpation of Matter from Lingula Bronchus, Via Natural or Artificial Opening Endoscopic (ICD-10-PCS; 2020-02-02)
PROC: 05HY33Z Insertion of Infusion Device into Upper Vein, Percutaneous Approach (ICD-10-PCS; 2020-02-02)
PROC: 00C40ZZ Extirpation of Matter from Intracranial Subdural Space, Open Approach (ICD-10-PCS; principal; 2020-02-02 10:07)
PROC: 30283B1 Transfusion of Nonautologous 4-Factor Prothrombin Complex Concentrate into Vein, Percutaneous Approach (ICD-10-PCS; 2020-02-03)
PROC: 5A1945Z Respiratory Ventilation, 24-96 Consecutive Hours (ICD-10-PCS; 2020-02-11)
PROC: 00C40ZZ Extirpation of Matter from Intracranial Subdural Space, Open Approach (ICD-10-PCS; 2020-02-11)
PROC: 009600Z Drainage of Cerebral Ventricle with Drainage Device, Open Approach (ICD-10-PCS; 2020-02-11)
PROC: 0DH63UZ Insertion of Feeding Device into Stomach, Percutaneous Approach (ICD-10-PCS; 2020-02-14)
DX: S06.5X0A Traumatic subdural hemorrhage without loss of consciousness, initial encounter (principal); J96.01 Acute respiratory failure with hypoxia; I50.33 Acute on chronic diastolic (congestive) heart failure; J96.02 Acute respiratory failure with hypercapnia; J69.0 Pneumonitis due to inhalation of food and vomit; F05 Delirium due to known physiological condition; I48.19 Other persistent atrial fibrillation; I16.1 Hypertensive emergency; G93.40 Encephalopathy, unspecified; J98.11 Atelectasis; T17.590A Other foreign object in bronchus causing asphyxiation, initial encounter; I48.91 Unspecified atrial fibrillation; Z79.01 Long term (current) use of anticoagulants; D64.9 Anemia, unspecified; E03.9 Hypothyroidism, unspecified; E11.9 Type 2 diabetes mellitus without complications; E78.5 Hyperlipidemia, unspecified; E87.8 Other disorders of electrolyte and fluid balance, not elsewhere classified; F32.9 Major depressive disorder, single episode, unspecified; G93.2 Benign intracranial hypertension; G93.89 Other specified disorders of brain; I11.0 Hypertensive heart disease with heart failure; I25.10 Atherosclerotic heart disease of native coronary artery without angina pectoris; I34.0 Nonrheumatic mitral (valve) insufficiency; R13.12 Dysphagia, oropharyngeal phase; Z79.899 Other long term (current) drug therapy; Z93.1 Gastrostomy status; W01.0XXA Fall on same level from slipping, tripping and stumbling without subsequent striking against object, initial encounter; Y93.89 Activity, other specified; Y99.8 Other external cause status; Y92.009 Unspecified place in unspecified non-institutional (private) residence as the place of occurrence of the external cause; X58.XXXA Exposure to other specified factors, initial encounter
CPT/HCPCS: 31500; 36415; 36600; 43246; 70450; 71045; 71250; 72125; 72170; 74018; 74230; 80048; 80053; 80076; 80162; 82435; 82550; 82607; 82746; 82803; 82947; 82948; 83605; 83735; 83874; 83880; 84100; 84132; 84145; 84295; 84443; 84484; 85018; 85025; 85027; 85610; 85730; 87071; 87205; 87633; 92526; 92610; 92611; 93005; 93970; 93971; 94002; 94003; 94640; 94660; 94664; 97039; A4344; C1713; C1751; C1894; C9113; G0378; J0282; J0330; J0690; J1100; J1160; J1940; J1953; J2150; J2270; J2405; J2543; J2704; J3010; J3430; J3475; J3480; J3490; J7030; J7040; J7060; J7120